=== PATIENT | male | born 1995 | race American Indian/Alaskan Native ===

== ENCOUNTER 2017-01-10 19:16 | Emergency (ER) | payer OTHER ==
[2017-01-10 21:16] LABS: Urine Drugs of Abuse Note Disclamer
[2017-01-10 21:38] LABS: Bilirubin,Urine NEG (Negative); Blood,Urine SM (Negative); Ketones,Urine 20 mg/dL (Negative); Leukocyte Esterase,Urine TR (Negative); Mucus,Urine 3+ /HPF; Nitrite,Urine NEG (Negative)
[2017-01-10 22:14] LABS: Basophils % (Auto) 0.6 % (0.0-1.8); Eosinophils % (Auto) 6.4 % (0.0-4.3); Hematocrit 43.3 % (35.5-45.6); Hemoglobin 14.6 gm/dl (11.8-15.2); Mean Corpuscular HGB Conc 34 % (32-34); Mean Corpuscular Hemoglobin 30 pg (28-32); Mean Corpuscular Volume 88 fl (84-94); Platelet Count 143 K/mm3 (140-440); Red Cell Distribution Width 14.7 % (13.2-15.2); White Blood Count 6.4 K/mm3 (4.5-11.0)
[2017-01-10 22:22] LABS: Anion Gap 21 mmol/L; BUN/Creatinine Ratio 18.75; Blood Urea Nitrogen 15 mg/dL (9-20); Calcium 9.6 mg/dL (8.4-10.2); Carbon Dioxide 23 mmol/L (22-30); Glucose 90 mg/dL (75-100); Potassium 3.8 mmol/L (3.6-5.0); Sodium 146 mmol/L (137-145)
[2017-01-11] MEDS ORDERED: ZITHROMAX PO ONE (08:48)
[2017-01-11] MEDS ORDERED: XYLOCAINE 1% MPF 5 mL INFILTRATI ONE (08:49)
[2017-01-11] MEDS ORDERED: ROCEPHIN IM ONE (08:49)
--- NOTE | 2017-01-11 08:59 | Emergency Department Report ---
ED Psych HPI - General Chief Complaint: Psych Stated Complaint: MH/ HALLUCINATIONS Time Seen by Provider: 01/11/17 08:11 Source: patient, EMS Mode of arrival: Ambulatory Limitations: No Limitations - History of Present Illness Initial Comments: 21-year-old male with history of HIV and breast implants presents to the hospital with complaints of hallucinations 2 days. Patient does not feel like himself. He states he objects moving and having auditory hallucinations. Denies headache, fever, neck pain, nausea, vomiting, blurred vision, or focal weakness. Patient has never had a previous psychiatric disorder and is not describing any medication. No compressive suicidal or homicidal ideation. Patient has not taken his HIV meds in 3 weeks. Patient does not know his last CD4 count or viral load. He does states he's been only been told he has HIV not full-blown AIDS. Patient has had breast implants but states he still has penile genitalia. No reports of dysuria or discharge - Related Data Home Medications Medication Instructions Recorded Confirmed Last Taken Elviteg/Cathryn/Emtric/Tenofo Ala 1 each PO QDAY 01/11/17 01/11/17 Unknown [Genvoya (Nf)] Quetiapine Fumarate [SEROquel XR] 25 mg PO QDAY 01/11/17 01/11/17 Unknown Allergies Allergy/AdvReac Type Severity Reaction Status Date / Time No Known Allergies Allergy Unverified 01/10/17 20:55 ED Review of Systems ROS: Stated complaint: MH/ HALLUCINATIONS Other details as noted in HPI Comment: All other systems reviewed and negative Other: Constitutional: No fevers chills Eyes: No eye pain visual changes ENT: No ear pain or throat pain Neck: Denies pain Respiratory: Denies cough wheezing shortness of breath Cardiovascular: Denies chest pain, palpitations, syncope GI: Denies abdominal pain, nausea, vomiting, diarrhea : Denies dysuria, urinary frequency, or urgency Musculoskeletal: Denies back pain, joint swelling Skin: Denies rash, lesions, erythema Neurologic: Denies headache, numbness, weakness Psychiatric: Denies suicidal ideation ED Past Medical Hx - Past Medical History Previous Medical History?: Yes Hx Psychiatric Treatment: Yes (hallucinations) Hx HIV: Yes - Surgical History Past Surgical History?: Yes Additional Surgical History: Breast augmentation - Social History Smoking Status: Never Smoker Substance Use Type: None - Medications Home Medications: Home Medications Medication Instructions Recorded Confirmed Last Taken Type Elviteg/Cathryn/Emtric/Tenofo Ala 1 each PO QDAY 01/11/17 01/11/17 Unknown History [Genvoya (Nf)] Quetiapine Fumarate [SEROquel XR] 25 mg PO QDAY 01/11/17 01/11/17 Unknown History ED Physical Exam - General Limitations: No Limitations - Other Other exam information: General: No limitations, patient is alert in no acute distress Head exam: Atraumatic, normocephalic Eyes exam: Normal appearance, pupils equal reactive to light, extraocular movements intact ENT: Moist mucous membrane, normal oropharynx Neck exam: Normal inspection, full range of motion, no meningismus nontender Respiratory exam: Clear to auscultation bilateral, no wheezes, rales, crackles. Positive breasts Cardiovascular: Normal rate and rhythm, normal heart sounds Abdomen: Soft, nondistended, and nontender, with normal bowel sounds, no rebound, or guarding Extremity: Full range of motion normal inspection no deformity Back: Normal Inspection, full range of motion, no tenderness Neurologic: Alert, oriented x3, cranial nerves intact, no motor or sensory deficit Psychiatric: normal affect, normal mood Skin: Warm, dry, intact ED Course Vital Signs 01/10/17 01/10/17 01/11/17 19:44 20:55 04:23 Temperature 99.3 F 99.3 F Pulse Rate 92 H 92 H 79 Respiratory 20 18 18 Rate Blood Pressure 119/83 126/86 Blood Pressure 119/83 [Right] O2 Sat by Pulse 95 95 Oximetry 01/11/17 01/11/17 05:50 12:00 Temperature 98.8 F Pulse Rate 84 Respiratory 16 18 Rate Blood Pressure Blood Pressure 118/78 [Right] O2 Sat by Pulse 96 98 Oximetry - Reevaluation(s) Reevaluation #1: 01/11/17 09:01 Rocephin and azithromycin ordered for your leukocytosis. GC chlamydia pending. Urine culture pending. ED Medical Decision Making - Lab Data Result diagrams: 01/10/17 21:34 01/10/17 21:34 Lab Results 01/10/17 01/10/17 01/10/17 Range/Units 21:00 21:00 21:34 WBC (4.5-11.0) K/mm3 RBC (3.65-5.03) M/mm3 Hgb (11.8-15.2) gm/dl Hct (35.5-45.6) % MCV (84-94) fl MCH (28-32) pg MCHC (32-34) % RDW (13.2-15.2) % Plt Count (140-440) K/mm3 Lymph % (Auto) (13.4-35.0) % [place] % (Auto) (0.0-7.3) % Eos % (Auto) (0.0-4.3) % Baso % (Auto) (0.0-1.8) % Lymph # (1.2-5.4) K/mm3 Morrow # (0.0-0.8) K/mm3 Eos # (0.0-0.4) K/mm3 Baso # (0.0-0.1) K/mm3 Seg Neutrophils % (40.0-70.0) % Seg Neutrophils # (1.8-7.7) K/mm3 Sodium 146 H (137-145) mmol/L Potassium 3.8 (3.6-5.0) mmol/L Chloride 106.0 (98-107) mmol/L Carbon Dioxide 23 (22-30) mmol/L Anion Gap 21 mmol/L BUN 15 (9-20) mg/dL Creatinine 0.8 (0.8-1.5) mg/dL Estimated GFR > 60 ml/min BUN/Creatinine Ratio 18.75 % Glucose 90 (75-100) mg/dL Calcium 9.6 (8.4-10.2) mg/dL Urine Color Sulma (Yellow) Urine Turbidity Cloudy (Clear) Urine pH 6.0 (5.0-7.0) Ur Specific [place] 1.033 H (1.003-1.030) Urine Protein 100 mg/dl (Negative) mg/dL Urine Glucose (UA) Neg (Negative) mg/dL Urine Ketones 20 (Negative) mg/dL Urine Blood Sm (Negative) Urine Nitrite Neg (Negative) Urine Bilirubin Neg (Negative) Urine Urobilinogen 4.0 (<2.0) mg/dL Ur Leukocyte Esterase Tr (Negative) Urine WBC (Auto) 13.0 H (0.0-6.0) /HPF Urine RBC (Auto) 7.0 (0.0-6.0) /HPF Urine Mucus 3+ /HPF Urine Opiates Screen Presumptive negative Urine Methadone Screen Presumptive negative Ur Barbiturates Screen Presumptive negative Ur Phencyclidine Scrn Presumptive negative Ur Amphetamines Screen Presumptive negative U Benzodiazepines Scrn Presumptive negative Urine Cocaine Screen Presumptive negative U Marijuana (THC) Screen Presumptive negative Drugs of Abuse Note Disclamer Plasma/Serum Alcohol (0-0.07) gm% 01/10/17 01/10/17 Range/Units 21:34 21:34 WBC 6.4 (4.5-11.0) K/mm3 RBC 4.90 (3.65-5.03) M/mm3 Hgb 14.6 (11.8-15.2) gm/dl Hct 43.3 (35.5-45.6) % MCV 88 (84-94) fl MCH 30 (28-32) pg MCHC 34 (32-34) % RDW 14.7 (13.2-15.2) % Plt Count 143 (140-440) K/mm3 Lymph % (Auto) 36.3 H (13.4-35.0) % [place] % (Auto) 10.9 H (0.0-7.3) % Eos % (Auto) 6.4 H (0.0-4.3) % Baso % (Auto) 0.6 (0.0-1.8) % Lymph # 2.3 (1.2-5.4) K/mm3 Morrow # 0.7 (0.0-0.8) K/mm3 Eos # 0.4 (0.0-0.4) K/mm3 Baso # 0.0 (0.0-0.1) K/mm3 Seg Neutrophils % 45.8 (40.0-70.0) % Seg Neutrophils # 2.9 (1.8-7.7) K/mm3 Sodium (137-145) mmol/L Potassium (3.6-5.0) mmol/L Chloride (98-107) mmol/L Carbon Dioxide (22-30) mmol/L Anion Gap mmol/L BUN (9-20) mg/dL Creatinine (0.8-1.5) mg/dL Estimated GFR ml/min BUN/Creatinine Ratio % Glucose (75-100) mg/dL Calcium (8.4-10.2) mg/dL Urine Color (Yellow) Urine Turbidity (Clear) Urine pH (5.0-7.0) Ur Specific [place] (1.003-1.030) Urine Protein (Negative) mg/dL Urine Glucose (UA) (Negative) mg/dL Urine Ketones (Negative) mg/dL Urine Blood (Negative) Urine Nitrite (Negative) Urine Bilirubin (Negative) Urine Urobilinogen (<2.0) mg/dL Ur Leukocyte Esterase (Negative) Urine WBC (Auto) (0.0-6.0) /HPF Urine RBC (Auto) (0.0-6.0) /HPF Urine Mucus /HPF Urine Opiates Screen Urine Methadone Screen Ur Barbiturates Screen Ur Phencyclidine Scrn Ur Amphetamines Screen U Benzodiazepines Scrn Urine Cocaine Screen U Marijuana (THC) Screen Drugs of Abuse Note Plasma/Serum Alcohol < 0.01 (0-0.07) gm% - Radiology Data Radiology results: report reviewed (ct head: naf) - Medical Decision Making Acute psychotic break. CT within normal limits. Antibiotics admission for your leukocytosis. Gonorrhea chlamydia culture pending. Medical clear for psychiatric transfer Psychiatric provider to sign 1013 form - Differential Diagnosis schizophrenia, psychosis, intracranial abnormality Critical Care Time: No Critical care attestation.: If time is entered above; I have spent that time in minutes in the direct care of this critically ill patient, excluding procedure time. ED Disposition Clinical Impression: Acute psychosis, HIV (human immunodeficiency virus infection), Urethritis, Hx of breast implants, bilateral, Medical clearance for psychiatric admission Disposition: DC/TX-65 PSY HOSP/PSY UNIT Is pt being admited?: No Does the pt Need Aspirin: No Condition: Stable Forms: STI Treatment and Prevention Time of Disposition: 16:44 (awaiting acceptance)
--- NOTE | 2017-01-11 09:39 | Cat Scan Report ---
Cranial CT without contrast. History: New onset psychosis. Findings: The brain parenchyma is normal. There is no evidence of mass, extra-axial collection, infarct, or hemorrhage. The posterior fossa is normal. The ventricles are normal. The calvarium is intact. Impression: Negative study.
--- NOTE | 2017-01-11 12:23 | Consultation ---
History of Present Illness - Reason for Consult Consult date: 01/11/17 Reason for consult: Mental Health Evaluation Requesting physician: NICKI JENNINGS - Chief Complaint Chief complaint: "I don't feel like myself" - History of Present Psychiatric Illness 21-year-old male with history of HIV and breast implants presents to the hospital with complaints of hallucinations 2 days. Today patient is calm, cooperative but disorganized with a circumstantial thought process. He stated not feeling like "himself" the last couple days "mentally." He reports being HIV positive and not taking his HIV medications for 3 weeks. He stated that he went out of town and returned experiencing AVH's. He could not tell me what the voices are saying, but stated that he see dark shadows often. He stated that he does not work, is homeless, but could not tell me how he got to [place]. Patient was able to ID the current [place] President and recall 2/3 numbers (3, 18, 22). He denies SI/HI's, but admit to erratic sleep for the past week. He denies recreational drug use or excessive alcohol consumption. Medications and Allergies Allergies Allergy/AdvReac Type Severity Reaction Status Date / Time No Known Allergies Allergy Unverified 01/10/17 20:55 Past psychiatric history - Past Medical History Past Medical History: other (HIV) Past Surgical History: Other - past Psychiatric treatment and history psychiatric treatment history: He denies a psy andfam psy hx - Social History Social history: Lives alone (GED, Homeless) Mental Status Exam - Vital signs Last Vital Signs Temp 99.3 F 01/10/17 20:55 Pulse 79 01/11/17 04:23 Resp 18 01/11/17 04:23 BP 126/86 01/11/17 04:23 Pulse Ox 95 01/10/17 20:55 - Exam Narrative exam: ROS: (+) psychosis MSE: Appearance: calm Behavior: regular eye contact Speech: low rate and tone Mood: "something is wrong" Affect: labile Thought Process: circumstantial Thought Content: denies SI/HI's, disorganized Motor Activity: ambulatory Cognition: A/Ox 3 Insight: poor Judgment: poor Results Result Diagrams: 01/10/17 21:34 01/10/17 21:34 Abnormal lab results 01/10/17 01/10/17 01/10/17 Range/Units 21:00 21:34 21:34 Lymph % (Auto) 36.3 H (13.4-35.0) % [place] % (Auto) 10.9 H (0.0-7.3) % Eos % (Auto) 6.4 H (0.0-4.3) % Sodium 146 H (137-145) mmol/L Ur Specific [place] 1.033 H (1.003-1.030) Urine WBC (Auto) 13.0 H (0.0-6.0) /HPF All other labs normal. Assessment and Plan Assessment and plan: Impression: Unspecified Psychosis. Today patient is calm, cooperative but disorganized with a circumstantial thought process. Patient denies SI/HI's. Patient have not taken HIV medications in 3 weeks. DDx: R/O Bipolar, R/O Delirium (HIV) Recommendation/Plan: Continue 1013. Start Geodon 20 mg PO HS for psychotic symptoms. Gather more collateral to determine proper dispo.
[2017-01-11] MEDS: GEODON PO SCH ×2 (21:48→23:05)
--- NOTE | 2017-01-12 12:18 | Progress Note ---
Subjective - Reason for Consult Consult date: 01/12/17 Reason for consult: Psychiatry Follow-up - Chief Complaint Chief complaint: "I don't feel like myself" 21-year-old male with history of HIV and breast implants presents to the hospital with complaints of hallucinations 2 days. Today patient is calm and cooperative during assessment. He stated that the AVH's are still active, but rested well last night. He stated seeing shadows this morning. He denies HI's and depression. Per the staff, no behavioral disturbances overnight. He denies any side effects of his medications. Mental Status Exam - Vital signs Last Vital Signs Temp 98.4 F 01/12/17 08:36 Pulse 90 01/12/17 08:36 Resp 18 01/12/17 08:36 BP 113/72 01/12/17 08:36 Pulse Ox 98 01/12/17 08:36 - Exam Narrative exam: MSE: Appearance: calm Behavior: regular eye contact Speech: regular rate and tone Mood: "I feel a little better" Affect: labile Thought Process: circumstantial Thought Content: denies SI/HI's Motor Activity: ambulatory Cognition: A/Ox 3 Insight: limited Judgment: limited Assessment and Plan mpression: Unspecified Psychosis. Today patient is calm and cooperative during the assessment. Patient still having perceptional disturbances. Patient have not taken HIV medications in 3 weeks. Recommendation/Plan: Continue 1013 with placement to inpatient psy services. Modify Geodon to 20 mg PO BID for psychotic symptoms. Discussed possible metabolic side effects of Geodon with patient.
[2017-01-12] MEDS: GEODON PO SCH ×2 (18:20→23:04)
[2017-01-13] MEDS: GEODON PO SCH ×2 (10:03→21:42)
[2017-01-14] MEDS: GEODON PO SCH ×2 (11:03→22:26)
--- NOTE | 2017-01-14 11:29 | Progress Note ---
Subjective - Reason for Consult Consult date: 01/14/17 Reason for consult: Psychiatry Follow-up - Chief Complaint Chief complaint: "How are you" 21-year-old male with history of HIV and breast implants presents to the hospital with complaints of hallucinations 2 days. Today patient is calm and cooperative during assessment. He stated that the AVH's has decreased. He stated getting more rest the last 24 hours. He denies SI/HI's and depression symptoms. Per the staff, no behavioral disturbances overnight. Mental Status Exam - Vital signs Last Vital Signs Temp 98.1 F 01/14/17 08:45 Pulse 82 01/14/17 08:45 Resp 18 01/14/17 08:45 BP 130/82 01/14/17 08:45 Pulse Ox 98 01/14/17 08:45 - Exam Narrative exam: MSE: Appearance: calm Behavior: regular eye contact Speech: regular rate and tone Mood: "okay" Affect: congruent to mood Thought Process: circumstantial Thought Content: denies SI/HI's Motor Activity: ambulatory Cognition: A/Ox 3 Insight: limited Judgment: limited Assessment and Plan Impression: Unspecified Psychosis. Today patient is calm and cooperative during the assessment. Minimum perceptional disturbances. Patient have not taken HIV medications in 3 weeks. Recommendation/Plan: Continue 1013 with placement to inpatient psy services. Continue Geodon to 20 mg PO BID for psychotic symptoms. Discussed possible metabolic side effects of Geodon with patient.
[2017-01-15] MEDS: GEODON PO SCH (09:49)
--- NOTE | 2017-01-15 12:05 | Progress Note ---
Subjective - Reason for Consult Consult date: 01/15/17 Reason for consult: Psychiatry Follow-up - Chief Complaint Chief complaint: "Hello" 21-year-old male with history of HIV and breast implants presents to the hospital with complaints of hallucinations. Today patient is calm and cooperative during assessment. He stated that the AVH's has ceased. He stated that he is homeless and will need somewhere to stay. He denies SI/HI's, AVH's, and depression symptoms. Mental Status Exam - Vital signs Last Vital Signs Temp 98.1 F 01/15/17 07:52 Pulse 75 01/15/17 07:52 Resp 16 01/15/17 07:52 BP 99/55 01/15/17 07:52 Pulse Ox 100 01/15/17 07:52 - Exam Narrative exam: MSE: Appearance: calm Behavior: regular eye contact Speech: regular rate and tone Mood: "okay" Affect: congruent to mood Thought Process: linear Thought Content: denies SI/HI's and AVH's Motor Activity: ambulatory Cognition: A/Ox 3 Insight: fair Judgment: fair Assessment and Plan Impression: Unspecified Psychosis. Today patient is calm and cooperative during the assessment. Denies perceptional disturbances. Patient is homeless. Patient no threat to self. Recommendation/Plan: Rescind 1013. Continue Geodon to 20 mg PO BID for psychotic symptoms. Discussed possible metabolic side effects of Geodon with patient. Science Analyst involvement, patient need placement. Patient given outpatient psy services information for [facility].
[2017-01-15 13:49] VITALS: BP 97/65
--- NOTE | 2017-01-15 13:56 | Emergency Department Report ---
Blank Doc - Documentation Documentation: This patient was medically cleared by another physician. He is discharged by psychiatry. I have been asked to provide him for a prescription for Geodon and print his discharge instructions by the psychiatric nurse practitioner.
== END 2017-01-15 14:22 | disposition home or self-care (01) ==
LOC: EEVIPCON 19:16 → ED 19:16
DX: F23 Brief psychotic disorder (principal); N34.2 Other urethritis
CPT/HCPCS: 36415; 70450; 80048; 80307; 81001; 85025; 87086; 87591; 96372; 99285; G0480; J0696; 80320

== ENCOUNTER 2017-01-23 18:34 | Emergency (ER) | payer SELFPAY ==
[2017-01-23 18:46] VITALS: BP 113/76
== END 2017-01-23 18:42 | disposition left against medical advice (07) ==
LOC: ED 18:34
DX: R07.9 Chest pain, unspecified (principal); Z53.21 Procedure and treatment not carried out due to patient leaving prior to being seen by health care provider

== ENCOUNTER 2017-01-24 19:45 | Emergency (ER) | payer OTHER ==
[2017-01-24 20:20] LABS: Hematocrit 40.9 % (35.5-45.6); Hemoglobin 13.8 gm/dl (11.8-15.2); Mean Corpuscular HGB Conc 34 % (32-34); Mean Corpuscular Hemoglobin 30 pg (28-32); Mean Corpuscular Volume 88 fl (84-94); Red Blood Count 4.63 M/mm3 (3.65-5.03); White Blood Count 4.7 K/mm3 (4.5-11.0)
[2017-01-24 20:21] LABS: Basophils % (Auto) 0.6 % (0.0-1.8); Platelet Count 176 K/mm3 (140-440)
[2017-01-24 20:26] LABS: Urine Drugs of Abuse Note Disclamer
[2017-01-24 20:30] LABS: Anion Gap 20 mmol/L; BUN/Creatinine Ratio 16.25; Blood Urea Nitrogen 13 mg/dL (9-20); Calcium 9.9 mg/dL (8.4-10.2); Carbon Dioxide 24 mmol/L (22-30); Glucose 88 mg/dL (75-100); Potassium 3.9 mmol/L (3.6-5.0); Sodium 144 mmol/L (137-145)
[2017-01-24 20:46] LABS: Bilirubin,Urine NEG (Negative); Blood,Urine NEG (Negative); Ketones,Urine NEG (Negative); Leukocyte Esterase,Urine NEG (Negative); Mucus,Urine 3+ /HPF; Nitrite,Urine NEG (Negative)
[2017-01-25] MEDS ORDERED: MACROBID PO ONE (00:45)
--- NOTE | 2017-01-25 00:46 | Emergency Department Report ---
ED General Adult HPI - General Chief complaint: Psych Stated complaint: MH Time Seen by Provider: 01/24/17 23:50 Source: patient, RN notes reviewed, old records reviewed Mode of arrival: Ambulatory Limitations: No Limitations - History of Present Illness Initial comments: This is a 22-year-old male. The patient is previously unknown to me. The patient reports a past medical history of HIV, does not know his CD4 count or viral load, reports he is currently on highly active antiretroviral therapy ( genvoya). He does not know CD4 count or viral load. The patient presents to the ER with a complaint of feeling like he is on a drug. He denies headache, neck pain, chest pain, abdominal pain or shortness of breath. He denies testicular pain. He does report that he has scant dysuria. He has no testicular pain. He has no rectal pain. The patient reports no recent sexual activity. When asked to further clarify what he means by his symptoms, the patient indicates that he feels like he has a sense of general fatigue, malaise, and lack of energy. -: Gradual Severity scale (0 -10): 0 Consistency: constant Improves with: none Worsens with: none Associated Symptoms: loss of appetite, malaise, weakness. denies: confusion, chest pain, cough, diaphoresis, fever/chills, headaches, shortness of breath, syncope - Related Data Home Medications Medication Instructions Recorded Confirmed Last Taken Elviteg/Cathryn/Emtric/Tenofo Ala 1 each PO QDAY 01/11/17 01/11/17 Unknown [Genvoya (Nf)] Quetiapine Fumarate [SEROquel XR] 25 mg PO QDAY 01/11/17 01/11/17 Unknown Previous Rx's Medication Instructions Recorded Last Taken Type Ziprasidone [Geodon] 20 mg PO BID #60 capsule 01/15/17 Unknown Rx Nitrofurantoin [place]/M-Cryst 100 mg PO Q12HR #13 capsule 01/25/17 Unknown Rx [Macrobid CAP] Allergies Allergy/AdvReac Type Severity Reaction Status Date / Time No Known Allergies Allergy Unverified 01/10/17 20:55 ED Review of Systems ROS: Stated complaint: MH Other details as noted in HPI Constitutional: malaise, weakness Eyes: denies: vision change ENT: denies: epistaxis Respiratory: denies: cough Cardiovascular: denies: chest pain Gastrointestinal: denies: abdominal pain Genitourinary: denies: dysuria Musculoskeletal: denies: back pain Skin: denies: lesions Neurological: weakness Psychiatric: denies: homicidal thoughts, suicidal thoughts ED Past Medical Hx - Past Medical History Previous Medical History?: Yes Hx Psychiatric Treatment: Yes (hallucinations) Hx HIV: Yes - Surgical History Past Surgical History?: Yes Additional Surgical History: Breast augmentation - Social History Smoking Status: Never Smoker Substance Use Type: None - Medications Home Medications: Home Medications Medication Instructions Recorded Confirmed Last Taken Type Elviteg/Cathryn/Emtric/Tenofo Ala 1 each PO QDAY 01/11/17 01/11/17 Unknown History [Genvoya (Nf)] Quetiapine Fumarate [SEROquel XR] 25 mg PO QDAY 01/11/17 01/11/17 Unknown History Ziprasidone [Geodon] 20 mg PO BID #60 capsule 01/15/17 Unknown Rx Nitrofurantoin [place]/M-Cryst 100 mg PO Q12HR #13 capsule 01/25/17 Unknown Rx [Macrobid CAP] ED Physical Exam - General Limitations: No Limitations General appearance: alert, in no apparent distress - Head Head exam: Present: atraumatic, normocephalic - Eye Eye exam: Present: normal appearance, EOMI. Absent: nystagmus - ENT ENT exam: Present: normal exam, normal orophraynx, mucous membranes moist, normal external ear exam - Neck Neck exam: Present: normal inspection, full ROM. Absent: tenderness, meningismus - Respiratory Respiratory exam: Present: normal lung sounds bilaterally. Absent: respiratory distress, wheezes, rales, rhonchi, stridor, chest wall tenderness, accessory muscle use, decreased breath sounds, prolonged expiratory - Cardiovascular Cardiovascular Exam: Present: regular rate, normal rhythm, normal heart sounds. Absent: systolic murmur, diastolic murmur, rubs, gallop - GI/Abdominal GI/Abdominal exam: Present: soft, normal bowel sounds. Absent: distended, tenderness, guarding, rebound, rigid - Rectal Rectal exam: Present: deferred - Extremities Exam Extremities exam: Present: normal inspection, full ROM, normal capillary refill. Absent: tenderness, pedal edema, joint swelling, calf tenderness - Back Exam Back exam: Present: normal inspection, full ROM. Absent: tenderness, CVA tenderness (R), CVA tenderness (L), muscle spasm, paraspinal tenderness, vertebral tenderness - Neurological Exam Neurological exam: Present: alert, oriented X3, normal gait, other (Extraocular movements intact. Tongue midline. No facial droop. Facial sensation intact to light touch in the V1, V2, V3 distribution bilaterally. 5 and 5 strength in 4 extremities.. Sensation is intact to light touch in 4 extremities.). Absent : motor sensory deficit - Psychiatric Psychiatric exam: Present: normal affect, normal mood. Absent: homicidal ideation, suicidal ideation - Skin Skin exam: Present: warm, dry, intact, normal color. Absent: rash ED Course Vital Signs 01/24/17 19:50 Temperature 99.4 F Pulse Rate 82 Respiratory 18 Rate Blood Pressure 113/71 [Right] O2 Sat by Pulse 99 Oximetry ED Medical Decision Making - Lab Data Result diagrams: 01/24/17 20:09 01/24/17 20:09 Vital Signs 01/24/17 19:50 Temperature 99.4 F Pulse Rate 82 Respiratory 18 Rate Blood Pressure 113/71 [Right] O2 Sat by Pulse 99 Oximetry Lab Results 01/24/17 01/24/17 01/24/17 Range/Units 20:09 20:09 20:09 WBC 4.7 (4.5-11.0) K/mm3 RBC 4.63 (3.65-5.03) M/mm3 Hgb 13.8 (11.8-15.2) gm/dl Hct 40.9 (35.5-45.6) % MCV 88 (84-94) fl MCH 30 (28-32) pg MCHC 34 (32-34) % RDW 15.0 (13.2-15.2) % Plt Count 176 (140-440) K/mm3 Lymph % (Auto) 42.8 H (13.4-35.0) % [place] % (Auto) 10.9 H (0.0-7.3) % Eos % (Auto) 8.0 H (0.0-4.3) % Baso % (Auto) 0.6 (0.0-1.8) % Lymph # 2.0 (1.2-5.4) K/mm3 [place] # 0.5 (0.0-0.8) K/mm3 Eos # 0.4 (0.0-0.4) K/mm3 Baso # 0.0 (0.0-0.1) K/mm3 Seg Neutrophils % 37.7 L (40.0-70.0) % Seg Neutrophils # 1.8 (1.8-7.7) K/mm3 Sodium 144 (137-145) mmol/L Potassium 3.9 (3.6-5.0) mmol/L Chloride 104.0 (98-107) mmol/L Carbon Dioxide 24 (22-30) mmol/L Anion Gap 20 mmol/L BUN 13 (9-20) mg/dL Creatinine 0.8 (0.8-1.5) mg/dL Estimated GFR > 60 ml/min BUN/Creatinine Ratio 16.25 % Glucose 88 (75-100) mg/dL Calcium 9.9 (8.4-10.2) mg/dL Total Creatine Kinase (55-170) units/L Urine Color (Yellow) Urine Turbidity (Clear) Urine pH (5.0-7.0) Ur Specific [place] (1.003-1.030) Urine Protein (Negative) mg/dL Urine Glucose (UA) (Negative) mg/dL Urine Ketones (Negative) mg/dL Urine Blood (Negative) Urine Nitrite (Negative) Urine Bilirubin (Negative) Urine Urobilinogen (<2.0) mg/dL Ur Leukocyte Esterase (Negative) Urine WBC (Auto) (0.0-6.0) /HPF Urine RBC (Auto) (0.0-6.0) /HPF U Epithel Cells (Auto) (0-13.0) /HPF Amorphous Crystals Urine Mucus /HPF Salicylates (2.8-20.0) mg/dL Urine Opiates Screen Urine Methadone Screen Acetaminophen (10.0-30.0) ug/mL Ur Barbiturates Screen Ur Phencyclidine Scrn Ur Amphetamines Screen U Benzodiazepines Scrn Urine Cocaine Screen U Marijuana (THC) Screen Drugs of Abuse Note Plasma/Serum Alcohol < 0.01 (0-0.07) gm% 01/24/17 01/24/17 01/24/17 Range/Units 20:09 20:09 20:09 WBC (4.5-11.0) K/mm3 RBC (3.65-5.03) M/mm3 Hgb (11.8-15.2) gm/dl Hct (35.5-45.6) % MCV (84-94) fl MCH (28-32) pg MCHC (32-34) % RDW (13.2-15.2) % Plt Count (140-440) K/mm3 Lymph % (Auto) (13.4-35.0) % [place] % (Auto) (0.0-7.3) % Eos % (Auto) (0.0-4.3) % Baso % (Auto) (0.0-1.8) % Lymph # (1.2-5.4) K/mm3 [place] # (0.0-0.8) K/mm3 Eos # (0.0-0.4) K/mm3 Baso # (0.0-0.1) K/mm3 Seg Neutrophils % (40.0-70.0) % Seg Neutrophils # (1.8-7.7) K/mm3 Sodium (137-145) mmol/L Potassium (3.6-5.0) mmol/L Chloride (98-107) mmol/L Carbon Dioxide (22-30) mmol/L Anion Gap mmol/L BUN (9-20) mg/dL Creatinine (0.8-1.5) mg/dL Estimated GFR ml/min BUN/Creatinine Ratio % Glucose (75-100) mg/dL Calcium (8.4-10.2) mg/dL Total Creatine Kinase 388 H (55-170) units/L Urine Color (Yellow) Urine Turbidity (Clear) Urine pH (5.0-7.0) Ur Specific [place] (1.003-1.030) Urine Protein (Negative) mg/dL Urine Glucose (UA) (Negative) mg/dL Urine Ketones (Negative) mg/dL Urine Blood (Negative) Urine Nitrite (Negative) Urine Bilirubin (Negative) Urine Urobilinogen (<2.0) mg/dL Ur Leukocyte Esterase (Negative) Urine WBC (Auto) (0.0-6.0) /HPF Urine RBC (Auto) (0.0-6.0) /HPF U Epithel Cells (Auto) (0-13.0) /HPF Amorphous Crystals Urine Mucus /HPF Salicylates < 0.3 L (2.8-20.0) mg/dL Urine Opiates Screen Urine Methadone Screen Acetaminophen < 15.0 (10.0-30.0) ug/mL Ur Barbiturates Screen Ur Phencyclidine Scrn Ur Amphetamines Screen U Benzodiazepines Scrn Urine Cocaine Screen U Marijuana (THC) Screen Drugs of Abuse Note Plasma/Serum Alcohol (0-0.07) gm% 01/24/17 01/24/17 Range/Units 20:16 20:16 WBC (4.5-11.0) K/mm3 RBC (3.65-5.03) M/mm3 Hgb (11.8-15.2) gm/dl Hct (35.5-45.6) % MCV (84-94) fl MCH (28-32) pg MCHC (32-34) % RDW (13.2-15.2) % Plt Count (140-440) K/mm3 Lymph % (Auto) (13.4-35.0) % [place] % (Auto) (0.0-7.3) % Eos % (Auto) (0.0-4.3) % Baso % (Auto) (0.0-1.8) % Lymph # (1.2-5.4) K/mm3 [place] # (0.0-0.8) K/mm3 Eos # (0.0-0.4) K/mm3 Baso # (0.0-0.1) K/mm3 Seg Neutrophils % (40.0-70.0) % Seg Neutrophils # (1.8-7.7) K/mm3 Sodium (137-145) mmol/L Potassium (3.6-5.0) mmol/L Chloride (98-107) mmol/L Carbon Dioxide (22-30) mmol/L Anion Gap mmol/L BUN (9-20) mg/dL Creatinine (0.8-1.5) mg/dL Estimated GFR ml/min BUN/Creatinine Ratio % Glucose (75-100) mg/dL Calcium (8.4-10.2) mg/dL Total Creatine Kinase (55-170) units/L Urine Color [place] (Yellow) Urine Turbidity Cloudy (Clear) Urine pH 6.0 (5.0-7.0) Ur Specific [place] 1.028 (1.003-1.030) Urine Protein 30 mg/dl (Negative) mg/dL Urine Glucose (UA) Neg (Negative) mg/dL Urine Ketones Neg (Negative) mg/dL Urine Blood Neg (Negative) Urine Nitrite Neg (Negative) Urine Bilirubin Neg (Negative) Urine Urobilinogen 4.0 (<2.0) mg/dL Ur Leukocyte Esterase Neg (Negative) Urine WBC (Auto) 14.0 H (0.0-6.0) /HPF Urine RBC (Auto) 3.0 (0.0-6.0) /HPF U Epithel Cells (Auto) 3.0 (0-13.0) /HPF Amorphous Crystals 1+ Urine Mucus 3+ /HPF Salicylates (2.8-20.0) mg/dL Urine Opiates Screen Presumptive negative Urine Methadone Screen Presumptive negative Acetaminophen (10.0-30.0) ug/mL Ur Barbiturates Screen Presumptive negative Ur Phencyclidine Scrn Presumptive negative Ur Amphetamines Screen Presumptive negative U Benzodiazepines Scrn Presumptive negative Urine Cocaine Screen Presumptive negative U Marijuana (THC) Screen Presumptive negative Drugs of Abuse Note Disclamer Plasma/Serum Alcohol (0-0.07) gm% - Medical Decision Making Differential diagnosis: Urinary tract infection, chronic HIV, anemia, Gen. medical evaluation Assessment and plan: 22-year-old male with chronic HIV, currently on highly active antiretroviral therapy, with a non specific complaint of fatigue. Physical exam is unremarkable, GCS of 15, NIH score of 0, clinically sober, does not require 1013. Urinalysis suggests urinary tract infection, he does endorse some irritative urinary symptoms, recently was tested negatively for gonorrhea and chlamydia. The patient is counseled that this is most likely part of the natural history of his HIV, and he should follow up with his outpatient HIV specialist. His vital signs have remained stable, he is afebrile , and he is suitable to follow up with outpatient primary care. Return precautions are reviewed. Critical care attestation.: If time is entered above; I have spent that time in minutes in the direct care of this critically ill patient, excluding procedure time. ED Disposition Clinical Impression: HIV (human immunodeficiency virus infection), Weakness Disposition: DC-01 TO HOME OR SELFCARE Is pt being admited?: No Does the pt Need Aspirin: No Condition: Stable Instructions: Nonspecific Urethritis in Men (ED) Additional Instructions: Continue current outpatient medications. Follow-up with a primary care doctor or HIV specialist within the next 10-14 days. Take antibiotics as directed. Return to the ER right away with fevers, chills, chest pain, shortness of breath , nausea, vomiting, confusion, intractable nausea or vomiting, inability to tolerate liquid feeds. Referrals: PRIMARY CARE, [Primary Care Provider] - 3-5 Days MICHELE ROGERS MD [Staff Physician] - 3-5 Days LAW WALLACE MD [Staff Physician] - 3-5 Days
[2017-01-25 00:51] VITALS: BP 120/61
== END 2017-01-25 00:55 | disposition home or self-care (01) ==
LOC: ED 19:45 → EEVIPCON 19:45 → ED 01-25 00:55
DX: R53.1 Weakness (principal); R44.3 Hallucinations, unspecified
CPT/HCPCS: 36415; 80048; 80307; 81001; 82550; 85025; 99284; G0480; 80320

== ENCOUNTER 2017-01-31 13:40 | Emergency (ER) | payer SELFPAY ==
--- NOTE | 2017-01-31 16:26 | Emergency Department Report ---
ED General Adult HPI - General Chief complaint: Urogenital-Female Stated complaint: POSS STD Source: patient Mode of arrival: Ambulatory Limitations: No Limitations - History of Present Illness Initial comments: 22 year old male presents with positive syphilis test from [place] without treatment. states that he was tested there a week ago and they called him the results but didnt get treated. states partner also has syphilis denies any symptoms at this time. - Related Data Home Medications Medication Instructions Recorded Confirmed Last Taken Elviteg/Cathryn/Emtric/Tenofo Ala 1 each PO QDAY 01/11/17 01/11/17 Unknown [Genvoya (Nf)] Quetiapine Fumarate [SEROquel XR] 25 mg PO QDAY 01/11/17 01/11/17 Unknown Previous Rx's Medication Instructions Recorded Last Taken Type Ziprasidone [Geodon] 20 mg PO BID #60 capsule 01/15/17 Unknown Rx Nitrofurantoin [place]/M-Cryst 100 mg PO Q12HR #13 capsule 01/25/17 Unknown Rx [Macrobid CAP] Allergies Allergy/AdvReac Type Severity Reaction Status Date / Time No Known Allergies Allergy Unverified 01/10/17 20:55 ED Review of Systems ROS: Stated complaint: POSS STD Other details as noted in HPI Constitutional: denies: chills, fever Eyes: denies: eye pain, eye discharge, vision change ENT: denies: ear pain, throat pain Respiratory: denies: cough, shortness of breath, wheezing Cardiovascular: denies: chest pain, palpitations Endocrine: no symptoms reported Gastrointestinal: denies: abdominal pain, nausea, diarrhea Genitourinary: denies: urgency, dysuria Musculoskeletal: denies: back pain, joint swelling, arthralgia Skin: denies: rash, lesions Neurological: denies: headache, weakness, paresthesias Psychiatric: denies: anxiety, depression Hematological/Lymphatic: denies: easy bleeding, easy bruising ED Past Medical Hx - Past Medical History Hx Psychiatric Treatment: Yes (hallucinations) Hx HIV: Yes Additional medical history: syphillis - Surgical History Additional Surgical History: Breast augmentation - Social History Smoking Status: Never Smoker Substance Use Type: None - Medications Home Medications: Home Medications Medication Instructions Recorded Confirmed Last Taken Type Elviteg/Cathryn/Emtric/Tenofo Ala 1 each PO QDAY 01/11/17 01/11/17 Unknown History [Genvoya (Nf)] Quetiapine Fumarate [SEROquel XR] 25 mg PO QDAY 01/11/17 01/11/17 Unknown History Ziprasidone [Geodon] 20 mg PO BID #60 capsule 01/15/17 Unknown Rx Nitrofurantoin [place]/M-Cryst 100 mg PO Q12HR #13 capsule 01/25/17 Unknown Rx [Macrobid CAP] ED Physical Exam - General Limitations: No Limitations General appearance: alert, in no apparent distress - Head Head exam: Present: atraumatic, normocephalic - Eye Eye exam: Present: normal appearance - ENT ENT exam: Present: mucous membranes moist - Neck Neck exam: Present: normal inspection - Respiratory Respiratory exam: Present: normal lung sounds bilaterally. Absent: respiratory distress - Cardiovascular Cardiovascular Exam: Present: regular rate, normal rhythm. Absent: systolic murmur, diastolic murmur, rubs, gallop - GI/Abdominal GI/Abdominal exam: Present: soft, normal bowel sounds - Rectal Rectal exam: Present: deferred - Extremities Exam Extremities exam: Present: normal inspection - Back Exam Back exam: Present: normal inspection - Neurological Exam Neurological exam: Present: alert, oriented X3 - Psychiatric Psychiatric exam: Present: normal affect, normal mood - Skin Skin exam: Present: warm, dry, intact, normal color. Absent: rash ED Course Vital Signs 01/31/17 01/31/17 13:55 16:49 Temperature 98.4 F Pulse Rate 74 86 Respiratory 16 16 Rate Blood Pressure 141/114 Blood Pressure 107/67 [Left] O2 Sat by Pulse 100 100 Oximetry ED Medical Decision Making - Lab Data Vital Signs 01/31/17 01/31/17 13:55 16:49 Temperature 98.4 F Pulse Rate 74 86 Respiratory 16 16 Rate Blood Pressure 141/114 Blood Pressure 107/67 [Left] O2 Sat by Pulse 100 100 Oximetry - Medical Decision Making patient has no symptoms at this time. NAD. will treat with bicillin in the ED. Critical care attestation.: If time is entered above; I have spent that time in minutes in the direct care of this critically ill patient, excluding procedure time. ED Disposition Clinical Impression: Positive serology for syphilis, Exposure to syphilis Disposition: DC-01 TO HOME OR SELFCARE Is pt being admited?: No Does the pt Need Aspirin: No Condition: Good Instructions: Syphilis (ED) Referrals: PRIMARY CARE, [Primary Care Provider] - 3-5 Days MARIAELENA TOSCANO [ED Bean Snapper] - 3-5 Days Time of Disposition: 16:28
[2017-01-31] MEDS ORDERED: BICILLIN L-A IM ONE (16:28)
[2017-01-31 16:50] VITALS: BP 107/67
== END 2017-01-31 17:33 | disposition home or self-care (01) ==
LOC: ED 13:40
DX: A53.9 Syphilis, unspecified (principal)
CPT/HCPCS: 96372; 99282; J0561

== ENCOUNTER 2017-02-04 21:05 | Emergency (ER) | payer OTHER ==
[2017-02-04 21:52] VITALS: BP 105/70
== END 2017-02-05 00:44 | disposition left against medical advice (07) ==
LOC: ED 21:05
DX: N64.4 Mastodynia (principal); Z53.21 Procedure and treatment not carried out due to patient leaving prior to being seen by health care provider

== ENCOUNTER 2017-02-08 11:56 | Emergency (ER) | payer SELFPAY ==
[2017-02-08 12:30] LABS: Hematocrit 40.7 % (35.5-45.6); Hemoglobin 13.5 gm/dl (11.8-15.2); Mean Corpuscular HGB Conc 33 % (32-34); Mean Corpuscular Hemoglobin 30 pg (28-32); Mean Corpuscular Volume 90 fl (84-94); Platelet Count 164 K/mm3 (140-440); Red Blood Count 4.53 M/mm3 (3.65-5.03); Red Cell Distribution Width 15.5 % (13.2-15.2); White Blood Count 3.7 K/mm3 (4.5-11.0)
[2017-02-08 12:42] LABS: Anion Gap 23 mmol/L; BUN/Creatinine Ratio 21.42; Blood Urea Nitrogen 15 mg/dL (9-20); Calcium 9.3 mg/dL (8.4-10.2); Carbon Dioxide 21 mmol/L (22-30); Glucose 69 mg/dL (75-100); Potassium 3.5 mmol/L (3.6-5.0); Sodium 141 mmol/L (137-145)
[2017-02-08 13:10] LABS: Blastocytes % (Manual) 0 %; Diff Status Complete; Platelet Estimate Consistent w Auto; RBC Morphology Normal; Smudge Cells Few
--- NOTE | 2017-02-08 18:43 | Emergency Department Report ---
HPI - General Chief Complaint: Psych Time Seen by Provider: 02/08/17 17:48 - HPI HPI: [facility]/ Room 13 The pt is a 22 /o M p/w a CC of dry cough and fatigue. The pt states he came to the ED b/c he feels as though he has had an ~ 3-4 lbs wt loss over the past week and has felt fatigue and suffered from a dry cough for the past 3-4 days. Pt denies fever, sob, n/v or diarrhea. Pt does admit to auditory halluc for 1 moth. The pt states he hears distant voices and cannot make out what they are saying. Pt denies visual halluc. ED Past Medical Hx - Past Medical History Hx Psychiatric Treatment: Yes (hallucinations) Hx HIV: Yes Additional medical history: syphillis - Surgical History Additional Surgical History: Breast augmentation - Family History Family history: no significant - Social History Smoking Status: Never Smoker Substance Use Type: None (denies illicit drug use) - Medications Home Medications: Home Medications Medication Instructions Recorded Confirmed Last Taken Type Elviteg/Cathryn/Emtric/Tenofo Ala 1 each PO QDAY 01/11/17 01/11/17 Unknown History [Genvoya (Nf)] Quetiapine Fumarate [SEROquel XR] 25 mg PO QDAY 01/11/17 01/11/17 Unknown History Ziprasidone [Geodon] 20 mg PO BID #60 capsule 01/15/17 Unknown Rx Nitrofurantoin [place]/M-Cryst 100 mg PO Q12HR #13 capsule 01/25/17 Unknown Rx [Macrobid CAP] ED Review of Systems ROS: Stated complaint: MEDICAL CLEARANCE Other details as noted in HPI Comment: All other systems reviewed and negative Constitutional: malaise. denies: chills, fever Eyes: denies: eye pain, eye discharge, vision change ENT: denies: ear pain, throat pain Respiratory: cough. denies: shortness of breath, wheezing Cardiovascular: denies: chest pain, palpitations Endocrine: no symptoms reported Gastrointestinal: denies: abdominal pain, nausea, diarrhea Genitourinary: denies: urgency, dysuria Musculoskeletal: denies: back pain, joint swelling, arthralgia Skin: denies: rash, lesions Neurological: denies: weakness, paresthesias Psychiatric: auditory hallucinations. denies: visual hallucinations, homicidal thoughts, suicidal thoughts Hematological/Lymphatic: denies: easy bleeding, easy bruising Physical Exam - Physical Exam Vital Signs: Vital Signs 02/08/17 12:01 Temperature 98.4 F Pulse Rate 82 Respiratory 18 Rate Blood Pressure 119/68 O2 Sat by Pulse 100 Oximetry Physical Exam: GEN: WD, WN M lying on stretcher not appearing to be in acute distress. HEENT: normocephalic, atraumatic PULM: CTA B CV: rrr, no m/r/g ABD: s, nt, nd Neuro: GCS 15, CN 2-12 GI, no drift. no nuchal rigidity, nl gait Ext: no deformity ED Course Vital Signs 02/08/17 12:01 Temperature 98.4 F Pulse Rate 82 Respiratory 18 Rate Blood Pressure 119/68 O2 Sat by Pulse 100 Oximetry ED Medical Decision Making - Lab Data Result diagrams: 02/08/17 12:12 02/08/17 12:12 Laboratory Tests 02/08/17 02/08/17 02/08/17 12:12 12:12 12:12 WBC 3.7 L RBC 4.53 Hgb 13.5 Hct 40.7 MCV 90 MCH 30 MCHC 33 RDW 15.5 H Plt Count 164 Lymph % (Auto) [employer] Add Manual Diff Complete Total Counted 100 Seg Neutrophils % [employer] Seg Neuts % (Manual) 35.0 L Band Neutrophils % 0 Lymphocytes % (Manual) 52.0 H Reactive Lymphs % (Man) 0 Monocytes % (Manual) 9.0 H Eosinophils % (Manual) 2.0 Basophils % (Manual) 2.0 H Metamyelocytes % 0 Myelocytes % 0 Promyelocytes % 0 Blast Cells % 0 Nucleated RBC % Not Reportable Seg Neutrophils # Man 1.3 L Band Neutrophils # 0.0 Lymphocytes # (Manual) 1.9 Abs React Lymphs (Man) 0.0 Monocytes # (Manual) 0.3 Eosinophils # (Manual) 0.1 Basophils # (Manual) 0.1 Metamyelocytes # 0.0 Myelocytes # 0.0 Promyelocytes # 0.0 Blast Cells # 0.0 WBC Morphology Not Reportable Hypersegmented Neuts Not Reportable Hyposegmented Neuts Not Reportable Hypogranular Neuts Not Reportable Smudge Cells Few Toxic Granulation Not Reportable Toxic Vacuolation Not Reportable Dohle Bodies Not Reportable Pelger-Huet Anomaly Not Reportable Jefry Rods Not Reportable Platelet Estimate Consistent w auto Clumped Platelets Not Reportable Plt Clumps, EDTA Not Reportable Large Platelets Not Reportable Giant Platelets Not Reportable Platelet Satelliting Not Reportable Plt Morphology Comment Not Reportable RBC Morphology Normal Dimorphic RBCs Not Reportable Polychromasia Not Reportable Hypochromasia Not Reportable Poikilocytosis Not Reportable Anisocytosis Not Reportable Microcytosis Not Reportable Macrocytosis Not Reportable Spherocytes Not Reportable Pappenheimer Bodies Not Reportable Sickle Cells Not Reportable Target Cells Not Reportable Tear Drop Cells Not Reportable Ovalocytes Not Reportable Helmet Cells Not Reportable [place] Bodies Not Reportable [place] Rings Not Reportable [place] Cells Not Reportable Bite Cells Not Reportable Crenated Cell Not Reportable Elliptocytes Not Reportable Acanthocytes (Spur) Not Reportable Rouleaux Not Reportable Hemoglobin C Crystals Not Reportable Schistocytes Not Reportable Malaria parasites Not Reportable Raj Bodies Not Reportable Hem Pathologist Commnt No Sodium 141 Potassium 3.5 L Chloride 101.0 Carbon Dioxide 21 L Anion Gap 23 BUN 15 Creatinine 0.7 L Estimated GFR > 60 BUN/Creatinine Ratio 21.42 Glucose 69 L Calcium 9.3 Plasma/Serum Alcohol < 0.01 - Differential Diagnosis pna, ptx, anemia, psychosis Critical care attestation.: If time is entered above; I have spent that time in minutes in the direct care of this critically ill patient, excluding procedure time. ED Disposition Clinical Impression: Auditory hallucinations Disposition: DC/TX-65 PSY HOSP/PSY UNIT Is pt being admited?: No Does the pt Need Aspirin: No Condition: Fair Referrals: PRIMARY CARE, [Primary Care Provider] - 3-5 Days Time of Disposition: 01:47 (awaiting eval)
[2017-02-09 09:07] LABS: Urine Drugs of Abuse Note Disclamer
[2017-02-09 09:27] LABS: Bilirubin,Urine NEG (Negative); Blood,Urine NEG (Negative); Ketones,Urine 20 mg/dL (Negative); Leukocyte Esterase,Urine NEG (Negative); Mucus,Urine 3+ /HPF; Nitrite,Urine NEG (Negative)
[2017-02-09 12:34] VITALS: BP 120/69
--- NOTE | 2017-02-09 14:37 | Consultation ---
History of Present Illness - Reason for Consult Consult date: 02/09/17 Reason for consult: Mental Health Evaluation Requesting physician: TA ROUSE - Chief Complaint Chief complaint: "I just wanted some labs done" - History of Present Psychiatric Illness 22 y.o AA male presenting to [facility] for fatigue and hallucinations. Psychiatry was consulted. This patient is known to me. Today patient is calm and cooperative during the assessment. He stated that he wanted some labs done along with getting a UDS. He stated that he came to [facility] because he is familiar with this facility. He stated that he never was hearing voices on admission. He denies SI/HI's, AVH"s, and depression. He denies recreational drug use and excessive alcohol consumption (etoh). Medications and Allergies Allergies Allergy/AdvReac Type Severity Reaction Status Date / Time No Known Allergies Allergy Verified 02/08/17 12:01 Home Medications Medication Instructions Recorded Confirmed Last Taken Type Elviteg/Cathryn/Emtric/Tenofo Ala 1 each PO QDAY 01/11/17 01/11/17 Unknown History [Genvoya (Nf)] Quetiapine Fumarate [SEROquel XR] 25 mg PO QDAY 01/11/17 01/11/17 Unknown History Ziprasidone [Geodon] 20 mg PO BID #60 capsule 01/15/17 Unknown Rx Nitrofurantoin [place]/M-Cryst 100 mg PO Q12HR #13 capsule 01/25/17 Unknown Rx [Macrobid CAP] Past psychiatric history - Past Medical History Past Medical History: HIV/AIDS Past Surgical History: No surgical history - past Psychiatric treatment and history psychiatric treatment history: Referred to [facility] for outpatient psy services in the past. Denies a fam psy hx. - Social History Social history: Lives alone Mental Status Exam - Vital signs Last Vital Signs Temp 98.1 F 02/09/17 07:36 Pulse 75 02/09/17 07:36 Resp 16 02/09/17 12:00 BP 120/69 02/09/17 07:36 Pulse Ox 100 02/09/17 12:00 - Exam Narrative exam: ROS (-) depression, (-) psychosis MSE: Appearance: calm, cooperative Behavior: regular eye contact Speech: regular rate and tone Mood: "okay" Affect: congruent to mood Thought Process: linear Thought Content: denies SI/HI's and AVH's Motor Activity: ambulatory Cognition: A/Ox 3 Insight: fair Judgment: fair Results Result Diagrams: 02/08/17 12:12 02/08/17 12:12 Abnormal lab results 02/08/17 Range/Units 12:12 WBC 3.7 L (4.5-11.0) K/mm3 RDW 15.5 H (13.2-15.2) % Seg Neuts % (Manual) 35.0 L (40.0-70.0) % Lymphocytes % (Manual) 52.0 H (13.4-35.0) % Monocytes % (Manual) 9.0 H (0.0-7.3) % Basophils % (Manual) 2.0 H (0.0-1.8) % Seg Neutrophils # Man 1.3 L (1.8-7.7) K/mm3 All other labs normal. Assessment and Plan Assessment and plan: Impression: Historical Dx: Unspecified Mood DO on previous admission. Today patient is calm and cooperative during the assessment. UDS is negative. Recommendation/Plan: Rescind 1013. Patient is aware that he can follow-up with [facility].
--- NOTE | 2017-02-09 14:43 | Emergency Department Report ---
Blank Doc - Documentation Documentation: Pt was evaluated by mental health assess her and deemed not to be suicidal, homicidal, or acutely psychotic. Patient now states he came here for UDS and STD testing. UDS was performed. Gonorrhea and chlamydia test is pending. Patient also be referred to the health department for further STD evaluation. Patient is not a 1013 and will be discharged home
== END 2017-02-09 15:23 | disposition home or self-care (01) ==
LOC: ED 11:56 → EEVIPCON 11:56 → ED 02-09 15:23
DX: R44.0 Auditory hallucinations (principal)
CPT/HCPCS: 36415; 80048; 80307; 81001; 85007; 85025; 87591; 99284; G0480; 80320

== ENCOUNTER 2017-02-10 12:55 | Emergency (ER) | payer SELFPAY ==
[2017-02-10 13:47] VITALS: BP 101/72
--- NOTE | 2017-02-10 16:37 | Emergency Department Report ---
ED Male HPI - General Chief complaint: Urogenital-Male Stated complaint: GROIN PAIN Time Seen by Provider: 02/10/17 16:36 Source: patient Mode of arrival: Ambulatory Limitations: No Limitations - History of Present Illness MD Complaint: penile discharge, dysuria - Related Data Home Medications Medication Instructions Recorded Confirmed Last Taken Elviteg/Cathryn/Emtric/Tenofo Ala 1 each PO QDAY 01/11/17 01/11/17 Unknown [Genvoya (Nf)] Quetiapine Fumarate [SEROquel XR] 25 mg PO QDAY 01/11/17 01/11/17 Unknown Previous Rx's Medication Instructions Recorded Last Taken Type Ziprasidone [Geodon] 20 mg PO BID #60 capsule 01/15/17 Unknown Rx Nitrofurantoin [place]/M-Cryst 100 mg PO Q12HR #13 capsule 01/25/17 Unknown Rx [Macrobid CAP] Allergies Allergy/AdvReac Type Severity Reaction Status Date / Time No Known Allergies Allergy Verified 02/08/17 12:01 ED Review of Systems ROS: Stated complaint: GROIN PAIN Other details as noted in HPI ED Past Medical Hx - Past Medical History Hx Psychiatric Treatment: Yes (hallucinations) Hx HIV: Yes Additional medical history: syphillis - Surgical History Additional Surgical History: Breast augmentation - Social History Smoking Status: Never Smoker Substance Use Type: None - Medications Home Medications: Home Medications Medication Instructions Recorded Confirmed Last Taken Type Elviteg/Cathryn/Emtric/Tenofo Ala 1 each PO QDAY 01/11/17 01/11/17 Unknown History [Genvoya (Nf)] Quetiapine Fumarate [SEROquel XR] 25 mg PO QDAY 01/11/17 01/11/17 Unknown History Ziprasidone [Geodon] 20 mg PO BID #60 capsule 01/15/17 Unknown Rx Nitrofurantoin [place]/M-Cryst 100 mg PO Q12HR #13 capsule 01/25/17 Unknown Rx [Macrobid CAP] ED Physical Exam - General Limitations: No Limitations ED Course Vital Signs 02/10/17 13:44 Temperature 98.1 F Pulse Rate 79 Respiratory 16 Rate Blood Pressure 101/72 O2 Sat by Pulse 96 Oximetry Critical care attestation.: If time is entered above; I have spent that time in minutes in the direct care of this critically ill patient, excluding procedure time. ED Disposition Condition: Stable Referrals: PRIMARY CARE, [Primary Care Provider] - 3-5 Days
[2017-02-10] MEDS ORDERED: ZITHROMAX PO ONE (16:51)
[2017-02-10] MEDS ORDERED: XYLOCAINE 1% MPF 5 mL INFILTRATI ONE (16:51)
[2017-02-10] MEDS ORDERED: ROCEPHIN IM ONE (16:51)
[2017-02-10 16:53] LABS: Bilirubin,Urine NEG (Negative)
[2017-02-10 16:54] LABS: Blood,Urine NEG (Negative); Ketones,Urine TR mg/dL (Negative); Leukocyte Esterase,Urine TR (Negative); Mucus,Urine 3+ /HPF; Nitrite,Urine NEG (Negative)
--- NOTE | 2017-02-10 18:06 | Emergency Department Report ---
Entered by HERNAN TORRES, acting as scribe for MICHELE VALENZUELA PA. ED Male HPI - General Chief complaint: Urogenital-Male Stated complaint: GROIN PAIN Time Seen by Provider: 02/10/17 16:45 Source: patient Mode of arrival: Ambulatory Limitations: No Limitations - History of Present Illness Initial comments: 22 y/o male presents to the ED c/o penile pain x 4 days. Associated symptoms include discharge (clear) and dysuria, but denies testicular pain, rash, fever, chills, nausea and vomiting. Pain is described as 10/10 on a severity scale. Patient is sexually active and has more than one partner. No alleviating or aggravating factors. NKDA. PMHx of syphilis and HIV. PSHx of breast augmentation. MD Complaint: other (penile pain) Onset/Timin -: days(s) Location: penis Radiation: none Severity: severe Severity scale (0 -10): 10 Consistency: constant Improves with: none Worsens with: none discharge, dysuria. denies: nausea/vomiting, other (fever, chills, testicular pain ) - Related Data Sexually active: Yes Home Medications Medication Instructions Recorded Confirmed Last Taken Elviteg/Cathryn/Emtric/Tenofo Ala 1 each PO QDAY 01/11/17 01/11/17 Unknown [Genvoya (Nf)] Quetiapine Fumarate [SEROquel XR] 25 mg PO QDAY 01/11/17 01/11/17 Unknown Previous Rx's Medication Instructions Recorded Last Taken Type Ziprasidone [Geodon] 20 mg PO BID #60 capsule 01/15/17 Unknown Rx Nitrofurantoin [place]/M-Cryst 100 mg PO Q12HR #13 capsule 01/25/17 Unknown Rx [Macrobid CAP] Allergies Allergy/AdvReac Type Severity Reaction Status Date / Time No Known Allergies Allergy Verified 02/08/17 12:01 ED Review of Systems Comment: All other systems reviewed and negative Constitutional: denies: chills, fever Gastrointestinal: denies: nausea, vomiting Genitourinary: dysuria, discharge, other (penile pain). denies: testicular pain Skin: denies: rash ED Past Medical Hx - Past Medical History Hx Psychiatric Treatment: Yes (hallucinations) Hx HIV: Yes Additional medical history: syphillis - Surgical History Additional Surgical History: Breast augmentation - Social History Smoking Status: Never Smoker Substance Use Type: None - Medications Home Medications: Home Medications Medication Instructions Recorded Confirmed Last Taken Type Elviteg/Cathryn/Emtric/Tenofo Ala 1 each PO QDAY 01/11/17 01/11/17 Unknown History [Genvoya (Nf)] Quetiapine Fumarate [SEROquel XR] 25 mg PO QDAY 01/11/17 01/11/17 Unknown History Ziprasidone [Geodon] 20 mg PO BID #60 capsule 01/15/17 Unknown Rx Nitrofurantoin [place]/M-Cryst 100 mg PO Q12HR #13 capsule 01/25/17 Unknown Rx [Macrobid CAP] ED Physical Exam - General Limitations: No Limitations General appearance: alert, in no apparent distress - Head Head exam: Present: atraumatic, normocephalic, normal inspection - Eye Eye exam: Present: normal appearance, PERRL, EOMI. Absent: scleral icterus, conjunctival injection, nystagmus, periorbital swelling, periorbital tenderness Pupils: Present: normal accommodation - ENT ENT exam: Present: normal exam, normal orophraynx, mucous membranes moist, TM's normal bilaterally, normal external ear exam - Neck Neck exam: Present: normal inspection, full ROM. Absent: tenderness, meningismus, lymphadenopathy, thyromegaly - Respiratory Respiratory exam: Present: normal lung sounds bilaterally. Absent: respiratory distress, wheezes, rales, rhonchi, stridor, chest wall tenderness, accessory muscle use, decreased breath sounds, prolonged expiratory - Cardiovascular Cardiovascular Exam: Present: regular rate, normal rhythm, normal heart sounds. Absent: bradycardia, tachycardia, irregular rhythm, systolic murmur, diastolic murmur, rubs, gallop - GI/Abdominal GI/Abdominal exam: Present: soft, normal bowel sounds. Absent: tenderness, guarding, rebound - exam: Present: urethral discharge (clear-white discharge) - Extremities Exam Extremities exam: Present: normal inspection, full ROM, normal capillary refill. Absent: tenderness, pedal edema, joint swelling, calf tenderness - Back Exam Back exam: Present: normal inspection, full ROM. Absent: tenderness, CVA tenderness (R), CVA tenderness (L), muscle spasm, paraspinal tenderness, vertebral tenderness, rash noted - Neurological Exam Neurological exam: Present: alert, oriented X3 - Psychiatric Psychiatric exam: Present: normal affect, normal mood - Skin Skin exam: Present: warm, dry, intact, normal color. Absent: rash ED Course Vital Signs 02/10/17 13:44 Temperature 98.1 F Pulse Rate 79 Respiratory 16 Rate Blood Pressure 101/72 O2 Sat by Pulse 96 Oximetry ED Medical Decision Making - Medical Decision Making A/P: Urethritis, elaving against medical advice 1-I ordered empiric treatment with azithro and ceftriaxone. Pt willing to take azithromycin but unwilling to recive ceftriaxone infection, pt does not wish take this medicine. Patient is unwilling to elaborate why he does not wish to be treated further. I discussed this with the RN present. I advised patient that if he is not fully treated he will continue to have symptoms which may result in further infection sepsis and . Patient stated he understood these risks but did not want any further treatment in the ED at this time. Patient was awake alert and oriented 3 for this discussion was fully lucid and cooperative otherwise. SACHA Manzanares present for this discussion that I had with the patient. Patient signed out AGAINST MEDICAL ADVICE. 2-follow up with primary care ED Disposition Clinical Impression: Urethritis, Left against medical advice Disposition: DC-01 TO HOME OR SELFCARE Is pt being admited?: No Does the pt Need Aspirin: No Condition: Stable Instructions: Nonspecific Urethritis in Men (ED), Against Medical Advice (ED) Referrals: [facility] [Outside] - 3-5 Days [facility] [Outside] - 3-5 Days Forms: STI Treatment and Prevention, Work/School Release Form(ED), AMA Form Time of Disposition: 18:02 This documentation as recorded by the BRIAN bustillos ELIZABETH,accurately reflects the service I personally performed and the decisions made by me,MICHELE VALENZUELA PA.
== END 2017-02-10 18:12 | disposition home or self-care (01) ==
LOC: ED 12:55
DX: N34.2 Other urethritis (principal)
CPT/HCPCS: 81001; 87591; 96372; 99283; J0696

== ENCOUNTER 2017-02-16 07:46 | Emergency (ER) | payer SELFPAY ==
[2017-02-16 07:54] VITALS: BP 100/74
--- NOTE | 2017-02-16 09:20 | Emergency Department Report ---
ED General Adult HPI - General Chief complaint: Medical Clearance Stated complaint: Implant removal Source: patient Mode of arrival: Ambulatory Limitations: No Limitations - History of Present Illness Initial comments: 22 y/o M with a PMHX of syphillis and HIV presents wanting his implants removed as he states that they are infected. Pt reports to pain at the site that comes and goes and has worsened in the last few months. Pt has been taking advil for the pain. Pt states that he got the implants in last year in [place]. Pt denies any chest pain, fever, chills, or resp distress/ difficulty breathing at this time. He states that he feels like the implants are oozing, but has not noticed any external oozing. Pt states that he has seen his PCP for this issue and was referred to a specialist but has not gotten to see them yet. Tab Cutter was in the room during my examination of the patient. -: Gradual, month(s) (3) Location: chest (location of the breast area- implants) Severity scale (0 -10): 10 Quality: constant, other Consistency: intermittent Worsens with: medication Associated Symptoms: denies other symptoms Treatments Prior to Arrival: NSAID - Related Data Home Medications Medication Instructions Recorded Confirmed Last Taken Elviteg/Cathryn/Emtric/Tenofo Ala 1 each PO QDAY 01/11/17 01/11/17 Unknown [Genvoya (Nf)] Quetiapine Fumarate [SEROquel XR] 25 mg PO QDAY 01/11/17 01/11/17 Unknown Previous Rx's Medication Instructions Recorded Last Taken Type Ziprasidone [Geodon] 20 mg PO BID #60 capsule 01/15/17 Unknown Rx Nitrofurantoin [place]/M-Cryst 100 mg PO Q12HR #13 capsule 01/25/17 Unknown Rx [Macrobid CAP] Allergies Allergy/AdvReac Type Severity Reaction Status Date / Time No Known Allergies Allergy Verified 02/16/17 07:50 ED Review of Systems ROS: Stated complaint: Implant removal Other details as noted in HPI Constitutional: denies: chills, fever Eyes: denies: eye pain, eye discharge, vision change ENT: denies: ear pain, throat pain Respiratory: denies: cough (no respiratory distress or difficulty breathing), wheezing Cardiovascular: denies: chest pain, palpitations Endocrine: no symptoms reported Gastrointestinal: denies: abdominal pain, nausea, diarrhea Genitourinary: denies: urgency, dysuria Musculoskeletal: denies: back pain, joint swelling, arthralgia Skin: rash, lesions, other (reports to a feeling of oozing at the site of the impants) Neurological: denies: headache, weakness, paresthesias Psychiatric: denies: anxiety, depression Hematological/Lymphatic: denies: easy bleeding, easy bruising ED Past Medical Hx - Past Medical History Hx Psychiatric Treatment: Yes (hallucinations) Hx HIV: Yes Additional medical history: syphillis - Surgical History Additional Surgical History: Breast augmentation - Social History Smoking Status: Never Smoker Substance Use Type: None - Medications Home Medications: Home Medications Medication Instructions Recorded Confirmed Last Taken Type Elviteg/Cathryn/Emtric/Tenofo Ala 1 each PO QDAY 01/11/17 01/11/17 Unknown History [Genvoya (Nf)] Quetiapine Fumarate [SEROquel XR] 25 mg PO QDAY 01/11/17 01/11/17 Unknown History Ziprasidone [Geodon] 20 mg PO BID #60 capsule 01/15/17 Unknown Rx Nitrofurantoin [place]/M-Cryst 100 mg PO Q12HR #13 capsule 01/25/17 Unknown Rx [Macrobid CAP] ED Physical Exam - General Limitations: No Limitations General appearance: alert, in no apparent distress - Head Head exam: Present: atraumatic, normocephalic - Eye Eye exam: Present: normal appearance - ENT ENT exam: Present: mucous membranes moist - Neck Neck exam: Present: normal inspection - Respiratory Respiratory exam: Present: normal lung sounds bilaterally. Absent: respiratory distress - Cardiovascular Cardiovascular Exam: Present: regular rate, normal rhythm. Absent: systolic murmur, diastolic murmur, rubs, gallop - Skin Skin exam: Present: warm, dry, intact, normal color (at the site of bilateral impants there is a surgical scar noted inferior to the breast, no evidence of infection was noted at this time, no oozing, pus, or drianage, no redness, or swelling, mild pain at the site). Absent: rash ED Course Vital Signs 02/16/17 07:51 Temperature 98.6 F Pulse Rate 69 Respiratory 16 Rate Blood Pressure 100/74 O2 Sat by Pulse 100 Oximetry - Reevaluation(s) Reevaluation #1: 02/16/17 09:24 ED stay was uneventful ED Medical Decision Making - Medical Decision Making Pt requests to have his implants removed at the ED stating that he has been having pain at the surgical site and a feeling of internal oozing. I did not see any obvious signs of infection on examination today, I have informed the patient. Tylenol for pain at home and a referral has been provided to the patient for plastic surgery for removal of the implants. Educated that if any worsening symptoms then he may return to the ED immediately. Pt was alert and oriented, no signs of resp distress on discharge- vitals were stable. Currently only on Genoya for HIV. Critical care attestation.: If time is entered above; I have spent that time in minutes in the direct care of this critically ill patient, excluding procedure time. ED Disposition Clinical Impression: Hx of breast implants, bilateral Disposition: DC-01 TO HOME OR SELFCARE Is pt being admited?: No Does the pt Need Aspirin: No Condition: Stable Instructions: and Breast Implants (ED) Additional Instructions: Please take tylenol as needed for the pain. If your symptoms increase such as: fever, chills, oozing, pus drainage, chest pain or SOB. Please return to the ED immediately. Please follow up with plastic surgeon for possible removal of the implants. Follow-up with PCP in about 3-5 days. Referrals: [facility] [Outside] - 3-5 Days WORK,JOSE Diamond JR, MD [Staff Physician] - 3-5 Days PRIMARY CARE, [Primary Care Provider] - 3-5 Days Forms: Work/School Release Form(ED)
== END 2017-02-16 09:56 | disposition home or self-care (01) ==
LOC: ED 07:46
DX: T85.9XXA Unspecified complication of internal prosthetic device, implant and graft, initial encounter (principal); Y84.9 Medical procedure, unspecified as the cause of abnormal reaction of the patient, or of later complication, without mention of misadventure at the time of the procedure
CPT/HCPCS: 99282

== ENCOUNTER 2017-03-17 12:55 | Emergency (ER) | payer SELFPAY ==
[2017-03-17] MEDS ORDERED: MOTRIN PO ONE (16:42)
[2017-03-17 16:58] VITALS: BP 113/80
--- NOTE | 2017-03-17 17:03 | Emergency Department Report ---
ED General Adult HPI - General Chief complaint: Pain General Stated complaint: PAIN UNDER BREAST Time Seen by Provider: 03/17/17 16:18 Source: patient Mode of arrival: Ambulatory Limitations: No Limitations - History of Present Illness Initial comments: 22-year-old male with a history of left breast pain for several months. Patient having pain around his breast implants. He states he had implants placed one year ago. No fevers chills nausea vomiting. Denies SI or HI. -: Gradual Severity scale (0 -10): 0 Quality: aching, sharp Improves with: none Worsens with: none Associated Symptoms: denies: confusion, chest pain - Related Data Home Medications Medication Instructions Recorded Confirmed Last Taken Elviteg/Cathryn/Emtric/Tenofo Ala 1 each PO QDAY 01/11/17 01/11/17 Unknown [Genvoya (Nf)] Quetiapine Fumarate [SEROquel XR] 25 mg PO QDAY 01/11/17 01/11/17 Unknown Previous Rx's Medication Instructions Recorded Last Taken Type Ziprasidone [Geodon] 20 mg PO BID #60 capsule 01/15/17 Unknown Rx Nitrofurantoin [place]/M-Cryst 100 mg PO Q12HR #13 capsule 01/25/17 Unknown Rx [Macrobid CAP] Ibuprofen [Motrin 600 MG tab] 600 mg PO ONCE PRN #30 tablet 03/17/17 Unknown Rx Allergies Allergy/AdvReac Type Severity Reaction Status Date / Time No Known Allergies Allergy Verified 03/17/17 13:00 ED Review of Systems ROS: Stated complaint: PAIN UNDER BREAST Other details as noted in HPI Constitutional: denies: chills, fever ENT: denies: ear pain, throat pain, dental pain, hearing loss Respiratory: denies: cough, orthopnea, shortness of breath Cardiovascular: denies: chest pain, palpitations Gastrointestinal: denies: abdominal pain, nausea, vomiting Musculoskeletal: denies: back pain, joint swelling, arthralgia Skin: denies: rash ED Past Medical Hx - Past Medical History Previous Medical History?: Yes Hx Psychiatric Treatment: Yes (hallucinations) Hx HIV: Yes Additional medical history: syphillis - Surgical History Past Surgical History?: Yes Hx Breast Surgery: Yes Additional Surgical History: Breast augmentation - Social History Smoking Status: Never Smoker Substance Use Type: None - Medications Home Medications: Home Medications Medication Instructions Recorded Confirmed Last Taken Type Elviteg/Cathryn/Emtric/Tenofo Ala 1 each PO QDAY 01/11/17 01/11/17 Unknown History [Genvoya (Nf)] Quetiapine Fumarate [SEROquel XR] 25 mg PO QDAY 01/11/17 01/11/17 Unknown History Ziprasidone [Geodon] 20 mg PO BID #60 capsule 01/15/17 Unknown Rx Nitrofurantoin [place]/M-Cryst 100 mg PO Q12HR #13 capsule 01/25/17 Unknown Rx [Macrobid CAP] Ibuprofen [Motrin 600 MG tab] 600 mg PO ONCE PRN #30 tablet 03/17/17 Unknown Rx ED Physical Exam - General Limitations: No Limitations General appearance: alert, in no apparent distress, cachectic - Head Head exam: Present: atraumatic, normocephalic - Eye Eye exam: Present: normal appearance. Absent: scleral icterus, conjunctival injection - ENT ENT exam: Present: mucous membranes moist - Neck Neck exam: Absent: tenderness, lymphadenopathy, thyromegaly - Respiratory Respiratory exam: Present: normal lung sounds bilaterally. Absent: respiratory distress, wheezes - Cardiovascular Cardiovascular Exam: Present: regular rate, normal rhythm, other (slight tenderness around the left breast). Absent: systolic murmur, diastolic murmur, rubs, gallop - GI/Abdominal GI/Abdominal exam: Present: soft, normal bowel sounds. Absent: distended, guarding - Rectal Rectal exam: Present: deferred - Extremities Exam Extremities exam: Present: normal inspection - Back Exam Back exam: Present: normal inspection - Neurological Exam Neurological exam: Present: alert, oriented X3 - Psychiatric Psychiatric exam: Present: normal affect, normal mood - Skin Skin exam: Present: warm, dry, intact, normal color. Absent: rash ED Course Vital Signs 03/17/17 03/17/17 13:00 16:56 Temperature 98.2 F 98.9 F Pulse Rate 109 H 94 H Respiratory 20 Rate Blood Pressure 124/100 Blood Pressure 113/80 [Left] O2 Sat by Pulse 98 97 Oximetry ED Medical Decision Making - Lab Data Result diagrams: 03/17/17 16:48 03/17/17 16:48 - Medical Decision Making Patient with a history of left breast pain. Patient requesting transfer to have this breast implant removed. Told him this was not an emergent procedure that was needed. Plan check labs and and discharged with follow-up. I discussed the need to follow-up with her outpatient surgeon to have his breast implants rate. Portions of this chart were dictated with dictation software. There may be dictation errors contained within this note. Critical care attestation.: If time is entered above; I have spent that time in minutes in the direct care of this critically ill patient, excluding procedure time. ED Disposition Clinical Impression: Evaluation by medical service required Disposition: TO HOME OR SELFCARE Is pt being admited?: No Condition: Stable Prescriptions: Ibuprofen [Motrin 600 MG tab] 600 mg PO ONCE PRN #30 tablet PRN Reason: Pain Referrals: PRIMARY CARE, [Primary Care Provider] - 3-5 Days
[2017-03-17 17:19] LABS: Basophils % (Auto) 1.4 % (0.0-1.8); Eosinophils % (Auto) 6.4 % (0.0-4.3); Hematocrit 45.2 % (35.5-45.6); Hemoglobin 15.1 gm/dl (11.8-15.2); Mean Corpuscular HGB Conc 33 % (32-34); Mean Corpuscular Hemoglobin 30 pg (28-32); Mean Corpuscular Volume 88 fl (84-94); Platelet Count 148 K/mm3 (140-440); Red Blood Count 5.11 M/mm3 (3.65-5.03); White Blood Count 4.3 K/mm3 (4.5-11.0)
[2017-03-17 17:25] LABS: Anion Gap 19 mmol/L; BUN/Creatinine Ratio 16; Blood Urea Nitrogen 11 mg/dL (9-20); Carbon Dioxide 22 mmol/L (22-30); Chloride 102.1 mmol/L (98-107); Glucose 114 mg/dL (75-100); Potassium 3.9 mmol/L (3.6-5.0); Sodium 139 mmol/L (137-145)
== END 2017-03-17 18:38 | disposition home or self-care (01) ==
LOC: ED 12:55
DX: N64.4 Mastodynia (principal)
CPT/HCPCS: 36415; 80048; 85025; 99283

== ENCOUNTER 2017-05-19 02:26 | Emergency (ER) | payer OTHER ==
[2017-05-19] MEDS ORDERED: TORADOL IV ONE ×2 (03:27→03:54)
[2017-05-19] MEDS ORDERED: NACL 0.9% 1000 ML 1,000 ML IV ONE (03:54)
[2017-05-19 04:17] LABS: Basophils % (Auto) 0.8 % (0.0-1.8); Eosinophils % (Auto) 3.6 % (0.0-4.3); Hematocrit 42.6 % (35.5-45.6); Hemoglobin 14.3 gm/dl (11.8-15.2); Mean Corpuscular HGB Conc 34 % (32-34); Mean Corpuscular Hemoglobin 30 pg (28-32); Mean Corpuscular Volume 90 fl (84-94); Platelet Count 145 K/mm3 (140-440); Red Blood Count 4.76 M/mm3 (3.65-5.03); Red Cell Distribution Width 14.4 % (13.2-15.2); White Blood Count 4.2 K/mm3 (4.5-11.0)
[2017-05-19 04:22] LABS: Anion Gap 18 mmol/L; BUN/Creatinine Ratio 20; Blood Urea Nitrogen 14 mg/dL (9-20); Carbon Dioxide 27 mmol/L (22-30); Chloride 102.3 mmol/L (98-107); Glucose 88 mg/dL (75-100); Sodium 143 mmol/L (137-145)
--- NOTE | 2017-05-19 04:41 | XRay Report ---
FINAL REPORT PROCEDURE: XR CHEST ROUTINE 2V TECHNIQUE: PA and lateral chest radiographs were obtained. CPT 23833 HISTORY: Shortness of breath COMPARISON: No prior studies are available for comparison. FINDINGS: Heart: Normal. Mediastinum/Vessels: Normal. Lungs/Pleural space: Normal. Bony thorax: No acute osseous abnormality. Other: IMPRESSION: Normal examination.
--- NOTE | 2017-05-19 05:28 | Cat Scan Report ---
FINAL REPORT PROCEDURE: CT ANGIO CHEST TECHNIQUE: Computerized axial tomographic angiography of the chest and pulmonary arteries was performed after the IV injection of iodinated nonionic contrast. The image data was postprocessed using maximum intensity projection (MIP) and 2-dimensional multiplanar reformatted (MPR) techniques. The examination is specifically tailored to the evaluation of the pulmonary arteries per clinical request. HISTORY: Short of breath 786.09, chest pain 786.50, SOB,BREAST IMPLANTS IN MALE HIV,?PE COMPARISON: No prior studies are available for comparison. FINDINGS: Heart and pericardium: Normal. Thoracic aorta: Normal. Pulmonary vasculature: Normal. No pulmonary emboli. Lymph nodes: No enlarged thoracic lymph nodes. Lungs: Normal. Pleural space: No effusion, thickening, or pneumothorax. Musculoskeletal structures: No significant abnormality. Upper abdominal structures: No significant abnormality. IMPRESSION: Normal Examination.
[2017-05-19 07:08] LABS: Creatine Kinase MB 2.4 ng/mL (0.0-4.0)
[2017-05-19 07:10] LABS: Creatine Kinase 197 units/L (55-170)
--- NOTE | 2017-05-19 07:55 | Emergency Department Report ---
ED Chest Pain HPI - General Chief Complaint: Dyspnea/Respdistress Stated Complaint: MANJU Time Seen by Provider: 05/19/17 03:25 Source: patient, EMS Mode of arrival: Ambulatory Limitations: No Limitations - History of Present Illness Initial Comments: 22 YO MALE WITH BREAST IMPLANTS FOR ONE YEAR IS HERE WITH C/O CHEST PAIN AND DIFFICULTY BREATHING, CHEST TIGHTNESS , BODY ACHES AND COLDNESS TO FINGER AND TOES. DENIES COUGH, OR COLD SYMPTOMS. HE HAD BEEN HAVING TROUBLE WITH HIS IMPLANTS SINCE THEY HE PLACED LAST YEAR. HE PLANS TO HAVE THEM REMOVED AND TO DO HORMONE THERAPY. HE IS HIV POSITIVE AND HAS BEEN OFF MEDICATION FOR 6 MONTHS OR MORE MD Complaint: chest pain -: days(s) (FEW) Onset: during rest Pain Location: substernal, left chest, right chest Pain Radiation: none Severity: moderate Severity scale (0 -10): 4 Quality: tightness, aching Consistency: constant Improves With: nothing Worsens With: palpation re: dyspnea. denies: nausea, vomting Other Symptoms: denies: cough, fever, syncope Treatments Prior to Arrival: none - Related Data Home Medications Medication Instructions Recorded Confirmed Last Taken Elviteg/Cathryn/Emtric/Tenofo Ala 1 each PO QDAY 01/11/17 01/11/17 Unknown [Genvoya (Nf)] Quetiapine Fumarate [SEROquel XR] 25 mg PO QDAY 01/11/17 01/11/17 Unknown Previous Rx's Medication Instructions Recorded Last Taken Type Ziprasidone [Geodon] 20 mg PO BID #60 capsule 01/15/17 Unknown Rx Nitrofurantoin [place]/M-Cryst 100 mg PO Q12HR #13 capsule 01/25/17 Unknown Rx [Macrobid CAP] Ibuprofen [Motrin 600 MG tab] 600 mg PO ONCE PRN #30 tablet 05/19/17 Unknown Rx Allergies Allergy/AdvReac Type Severity Reaction Status Date / Time No Known Allergies Allergy Verified 03/17/17 13:00 Heart Score - HEART Score History: Slightly suspicious EKG: Normal Age: < 45 Risk factors: No known risk factors Troponin: < normal limit HEART Score: 0 ED Review of Systems ROS: Stated complaint: MANJU Other details as noted in HPI Constitutional: denies: chills, fever Eyes: denies: eye pain, eye discharge, vision change ENT: denies: ear pain, throat pain Respiratory: shortness of breath. denies: cough, wheezing Cardiovascular: chest pain. denies: palpitations Endocrine: no symptoms reported Gastrointestinal: denies: abdominal pain, nausea, diarrhea Genitourinary: denies: urgency, dysuria Musculoskeletal: denies: back pain, joint swelling, arthralgia Skin: denies: rash, lesions Neurological: denies: headache, weakness, paresthesias Psychiatric: denies: anxiety, depression Hematological/Lymphatic: denies: easy bleeding, easy bruising ED Past Medical Hx - Past Medical History Previous Medical History?: Yes Hx Psychiatric Treatment: Yes (hallucinations) Hx HIV: Yes Additional medical history: syphillis - Surgical History Past Surgical History?: Yes Hx Breast Surgery: Yes Additional Surgical History: Breast augmentation 2015 - Family History Family history: hypertension - Social History Smoking Status: Never Smoker Substance Use Type: None - Medications Home Medications: Home Medications Medication Instructions Recorded Confirmed Last Taken Type Elviteg/Cathryn/Emtric/Tenofo Ala 1 each PO QDAY 01/11/17 01/11/17 Unknown History [Genvoya (Nf)] Quetiapine Fumarate [SEROquel XR] 25 mg PO QDAY 01/11/17 01/11/17 Unknown History Ziprasidone [Geodon] 20 mg PO BID #60 capsule 01/15/17 Unknown Rx Nitrofurantoin [place]/M-Cryst 100 mg PO Q12HR #13 capsule 01/25/17 Unknown Rx [Macrobid CAP] Ibuprofen [Motrin 600 MG tab] 600 mg PO ONCE PRN #30 tablet 05/19/17 Unknown Rx ED Physical Exam - General Limitations: No Limitations General appearance: alert, in no apparent distress - Head Head exam: Present: atraumatic, normocephalic - Eye Eye exam: Present: normal appearance, EOMI - ENT ENT exam: Present: mucous membranes moist - Neck Neck exam: Present: normal inspection, full ROM - Respiratory Respiratory exam: Present: normal lung sounds bilaterally, other (LArge breast implants). Absent: respiratory distress - Cardiovascular Cardiovascular Exam: Present: regular rate, normal rhythm. Absent: systolic murmur, diastolic murmur, rubs, gallop - GI/Abdominal GI/Abdominal exam: Present: soft, normal bowel sounds. Absent: distended, tenderness - Rectal Rectal exam: Present: deferred - Extremities Exam Extremities exam: Present: normal inspection - Back Exam Back exam: Present: normal inspection - Neurological Exam Neurological exam: Present: alert, oriented X3 - Psychiatric Psychiatric exam: Present: normal affect, normal mood - Skin Skin exam: Present: warm, dry, intact, normal color. Absent: rash ED Course Vital Signs 05/19/17 05/19/17 05/19/17 02:37 03:34 04:00 Temperature 98.1 F 97.9 F Pulse Rate 74 70 64 Respiratory 18 16 15 Rate Blood Pressure 93/59 96/60 Blood Pressure 101/61 [Left] O2 Sat by Pulse 98 100 100 Oximetry 05/19/17 05/19/17 06:00 07:00 Temperature Pulse Rate 65 69 Respiratory 14 14 Rate Blood Pressure 104/51 96/47 Blood Pressure [Left] O2 Sat by Pulse 99 99 Oximetry HARJEET score - Harjeet Score Age > 65: (0) No Aspirin use within the Past 7 Days: (0) No 3 or more CAD Risk Factors: (0) No 2 or more Angina events in past 24 hrs: (0) No Known CAD with more than 50% Stenosis: (0) No Elevated Cardiac Markers: (0) No ST Deviation Greater than 0.5mm: (0) No HARJEET Score: 0 ED Medical Decision Making - Lab Data Result diagrams: 05/19/17 03:44 05/19/17 03:44 - Radiology Data Radiology results: report reviewed (CT abd: negative) Critical care attestation.: If time is entered above; I have spent that time in minutes in the direct care of this critically ill patient, excluding procedure time. ED Disposition Clinical Impression: Chest wall pain Disposition: - TO HOME OR SELFCARE Is pt being admited?: No Does the pt Need Aspirin: No Condition: Stable Instructions: Chest Pain (ED) Prescriptions: Ibuprofen [Motrin 600 MG tab] 600 mg PO ONCE PRN #30 tablet PRN Reason: Pain Referrals: PRIMARY CARE,MD [Primary Care Provider] - 3-5 Days Time of Disposition: 08:00
[2017-05-19 09:54] VITALS: BP 106/63
== END 2017-05-19 09:58 | disposition home or self-care (01) ==
LOC: ED 02:26
DX: R07.89 Other chest pain (principal); R06.00 Dyspnea, unspecified
CPT/HCPCS: 36415; 71020; 71275; 80048; 82550; 82553; 83880; 84484; 85025; 87400; 93005; 93010; 96361; 96374; 99285; J1885; J7030; Q9967

== ENCOUNTER 2020-09-12 02:09 | Emergency (ER) | payer SELFPAY ==
[2020-09-12 03:01] VITALS: BP 105/65
--- NOTE | 2020-09-12 03:20 | Emergency Department Report ---
ED General Adult HPI - General Chief complaint: Upper Respiratory Infection Stated complaint: NASAL CONGESTION Time Seen by Provider: 09/12/20 03:10 Source: patient Mode of arrival: Stretcher Limitations: No Limitations - History of Present Illness Initial comments: Patient is a 25-year-old male presents emergency room with complaints of nasal congestion and rhinorrhea that began today. Patient denies any fever, nausea, vomiting, diarrhea, shortness of breath, cough, chest pain, abdominal pain. Past medical history of HIV on his antivirals. No allergies to medications. No known sick contacts or recent travel. - Related Data Home Medications Medication Instructions Recorded Confirmed Last Taken Elviteg/Cathryn/Emtric/Tenofo Ala 1 each PO QDAY 01/11/17 01/11/17 Unknown [Genvoya (Nf)] Quetiapine Fumarate [SEROquel XR] 25 mg PO QDAY 01/11/17 01/11/17 Unknown Previous Rx's Medication Instructions Recorded Last Taken Type Ziprasidone [Geodon] 20 mg PO BID #60 capsule 01/15/17 Unknown Rx Nitrofurantoin [place]/M-Cryst 100 mg PO Q12HR #13 capsule 01/25/17 Unknown Rx [Macrobid CAP] Ibuprofen [Motrin 600 MG tab] 600 mg PO ONCE PRN #30 tablet 05/19/17 Unknown Rx Fluticasone [Flonase] 1 spray NS QDAY #1 bottle 09/12/20 Unknown Rx Loratadine 10 mg PO DAILY #30 tablet 09/12/20 Unknown Rx Allergies Allergy/AdvReac Type Severity Reaction Status Date / Time No Known Allergies Allergy Verified 03/17/17 13:00 ED Review of Systems ROS: Stated complaint: NASAL CONGESTION Other details as noted in HPI Comment: All other systems reviewed and negative ED Past Medical Hx - Past Medical History Previous Medical History?: Yes Hx Psychiatric Treatment: Yes (hallucinations) Hx HIV: Yes Additional medical history: syphillis, ECZEMA - Surgical History Past Surgical History?: Yes Hx Breast Surgery: Yes Additional Surgical History: Breast augmentation 2015 - Social History Smoking Status: Never Smoker Substance Use Type: None - Medications Home Medications: Home Medications Medication Instructions Recorded Confirmed Last Taken Type Elviteg/Cathryn/Emtric/Tenofo Ala 1 each PO QDAY 01/11/17 01/11/17 Unknown History [Genvoya (Nf)] Quetiapine Fumarate [SEROquel XR] 25 mg PO QDAY 01/11/17 01/11/17 Unknown History Ziprasidone [Geodon] 20 mg PO BID #60 capsule 01/15/17 Unknown Rx Nitrofurantoin [place]/M-Cryst 100 mg PO Q12HR #13 capsule 01/25/17 Unknown Rx [Macrobid CAP] Ibuprofen [Motrin 600 MG tab] 600 mg PO ONCE PRN #30 tablet 05/19/17 Unknown Rx Fluticasone [Flonase] 1 spray NS QDAY #1 bottle 09/12/20 Unknown Rx Loratadine 10 mg PO DAILY #30 tablet 09/12/20 Unknown Rx ED Physical Exam - General Limitations: No Limitations General appearance: alert, in no apparent distress - Head Head exam: Present: atraumatic, normocephalic - Eye Eye exam: Present: normal appearance. Absent: conjunctival injection, p eriorbital swelling, periorbital tenderness - ENT ENT exam: Present: normal orophraynx, mucous membranes moist, TM's normal bilaterally, normal external ear exam, other (pale boggy edematous turbinates with clear nasal drainage bilaterally, no purulent drainage, no erythema, no sinus ttp) - Respiratory Respiratory exam: Present: normal lung sounds bilaterally. Absent: respiratory distress, wheezes, rales, rhonchi, stridor, chest wall tenderness, accessory muscle use, decreased breath sounds, prolonged expiratory - Cardiovascular Cardiovascular Exam: Present: regular rate, normal rhythm, normal heart sounds. Absent: systolic murmur, diastolic murmur, rubs, gallop - Neurological Exam Neurological exam: Present: alert, oriented X3 - Psychiatric Psychiatric exam: Present: normal affect, normal mood - Skin Skin exam: Present: warm, dry, intact ED Course Vital Signs 09/12/20 02:57 Temperature 98.2 F Pulse Rate 89 Respiratory 18 Rate Blood Pressure 105/65 O2 Sat by Pulse 99 Oximetry ED Medical Decision Making - Medical Decision Making Patient is a 25-year-old male presents emergency room with complaints of nasal congestion and rhinorrhea that began today. Patient denies any fever, nausea, vomiting, diarrhea, shortness of breath, cough, chest pain, abdominal pain. Past medical history of HIV on his antivirals. No allergies to medications. No known sick contacts or recent travel. Vitals are normal. On exam:pale boggy edematous turbinates with clear nasal drainage bilaterally, no purulent drainage, no erythema, no sinus ttp, normal TMs and canals bilaterally, normal oropharynx, breath sounds are clear bilaterally, no wheezing, no rales, no rhonchi. Examination appears consistent with allergic rhinitis. Patient has no clinical signs of bacterial pneumonia or bacterial bronchitis. Patient given prescription for loratadine and Flonase. Advised patient Please take medication as prescribed. Increase your water intake. Follow-up with a primary care doctor for reexamination. Return to emergency room for any worsening symptoms. Critical care attestation.: If time is entered above; I have spent that time in minutes in the direct care of this critically ill patient, excluding procedure time. ED Disposition Clinical Impression: Nasal congestion, Rhinorrhea Allergic rhinitis Qualifiers: Allergic rhinitis trigger: unspecified Allergic rhinitis seasonality: unspecified Qualified Code(s): J30.9 - Allergic rhinitis, unspecified Disposition: DC-01 TO HOME OR SELFCARE Is pt being admited?: No Does the pt Need Aspirin: No Condition: Stable Instructions: Allergic Rhinitis, Adult, [id number] Additional Instructions: Please take medication as prescribed. Increase your water intake. Follow-up with a primary care doctor for reexamination. Return to emergency room for any worsening symptoms. Prescriptions: Fluticasone [Flonase] 1 spray NS QDAY #1 bottle Loratadine 10 mg PO DAILY #30 tablet Referrals: RAIN EID MD [Staff Physician] - 2-3 Days [facility] [Provider Group] - 2-3 Days Time of Disposition: 03:18 Print Language: HEBREW
== END 2020-09-12 03:26 | disposition home or self-care (01) ==
LOC: ED 02:09
DX: J30.9 Allergic rhinitis, unspecified (principal); R09.81 Nasal congestion; J34.89 Other specified disorders of nose and nasal sinuses; Z79.899 Other long term (current) drug therapy; Z21 Asymptomatic human immunodeficiency virus [HIV] infection status; Z98.890 Other specified postprocedural states
CPT/HCPCS: 99283

== ENCOUNTER 2021-04-24 02:52 | Emergency (ER) | payer SELFPAY ==
[2021-04-24] MEDS ORDERED: FAMOTIDINE 20 MG TAB PO ONE (07:22)
[2021-04-24] MEDS ORDERED: ALUM-MAG HYDROXIDE-SIMETHICONE 200-200-20MG/5ML ORAL LIQD 30 ML PO ONE (07:22)
[2021-04-24] MEDS ORDERED: ONDANSETRON 4 MG ODT TAB PO ONE (07:24)
--- NOTE | 2021-04-24 07:26 | Emergency Department Report ---
ED Abdominal Pain HPI - General Chief Complaint: Nausea/Vomiting/Diarrhea Time Seen by Provider: 04/24/21 07:15 Source: EMS Mode of arrival: Stretcher Limitations: No Limitations - History of Present Illness Initial Comments: 26-year male with a past medical history of HIV, psychosis, previous syphilis, and breast implants presents to the hospital complaints of abdominal pain for several hours. Pain is upper abdomen, mild to moderate, feels tight, no aggravating or alleviating factors reported. Patient complains of nausea without fever or diarrhea. Triage complaint also mentions itching in both legs which patient states has resolved since coming to the ED. Patient is disheveled and appears to be homeless. He denies previous abdominal surgeries. He is intermittently compliant with antiretrovirals. No urinary symptoms reported - Related Data Home Medications Medication Instructions Recorded Confirmed Last Taken Elviteg/Cathryn/Emtric/Tenofo Ala 1 each PO QDAY 01/11/17 01/11/17 Unknown [Genvoya (Nf)] Quetiapine Fumarate [SEROquel XR] 25 mg PO QDAY 01/11/17 01/11/17 Unknown Previous Rx's Medication Instructions Recorded Last Taken Type Ziprasidone [Geodon] 20 mg PO BID #60 capsule 01/15/17 Unknown Rx Nitrofurantoin [place]/M-Cryst 100 mg PO Q12HR #13 capsule 01/25/17 Unknown Rx [Macrobid CAP] Ibuprofen [Motrin 600 MG tab] 600 mg PO ONCE PRN #30 tablet 05/19/17 Unknown Rx Fluticasone [Flonase] 1 spray NS QDAY #1 bottle 09/12/20 Unknown Rx Loratadine 10 mg PO DAILY #30 tablet 09/12/20 Unknown Rx Docusate Sodium [Colace] 100 mg PO BID #20 capsule 04/24/21 Unknown Rx Polyethylene Glycol 3350 [Miralax] 17 gm PO DAILY PRN #10 dose 04/24/21 Unknown Rx Allergies Allergy/AdvReac Type Severity Reaction Status Date / Time No Known Allergies Allergy Verified 03/17/17 13:00 ED Review of Systems ROS: Stated complaint: Other details as noted in HPI Comment: All other systems reviewed and negative ED Past Medical Hx - Past Medical History Hx Psychiatric Treatment: Yes (hallucinations) Hx HIV: Yes Additional medical history: syphillis, ECZEMA - Surgical History Hx Breast Surgery: Yes Additional Surgical History: Breast augmentation 2015 - Social History Smoking Status: Unknown if ever smoked Substance Use Type: None - Medications Home Medications: Home Medications Medication Instructions Recorded Confirmed Last Taken Type Elviteg/Cathryn/Emtric/Tenofo Ala 1 each PO QDAY 01/11/17 01/11/17 Unknown History [Genvoya (Nf)] Quetiapine Fumarate [SEROquel XR] 25 mg PO QDAY 01/11/17 01/11/17 Unknown History Ziprasidone [Geodon] 20 mg PO BID #60 capsule 01/15/17 Unknown Rx Nitrofurantoin [place]/M-Cryst 100 mg PO Q12HR #13 capsule 01/25/17 Unknown Rx [Macrobid CAP] Ibuprofen [Motrin 600 MG tab] 600 mg PO ONCE PRN #30 tablet 05/19/17 Unknown Rx Fluticasone [Flonase] 1 spray NS QDAY #1 bottle 09/12/20 Unknown Rx Loratadine 10 mg PO DAILY #30 tablet 09/12/20 Unknown Rx Docusate Sodium [Colace] 100 mg PO BID #20 capsule 04/24/21 Unknown Rx Polyethylene Glycol 3350 [Miralax] 17 gm PO DAILY PRN #10 dose 04/24/21 Unknown Rx ED Physical Exam - General Limitations: No Limitations - Other Other exam information: General: No acute distress Head: Atraumatic Eyes: normal appearance ENT: Moist mucous membranes Neck: Normal appearance, no midline tenderness Chest: Clear to auscultation bilaterally CV: Regular rate and rhythm Abdomen: Soft, normal bowel sounds, mild mid and upper abdomen tenderness to palpation, nondistended, no rebound or guarding Back: Normal inspection Extremity: Normal inspection, full range of motion Neuro: Alert O x 3, no facial asymmetry, speech clear, no gross motor sensory deficit Psych: Appropriate behavior Skin: Generalized excoriated rash ED Course Vital Signs 04/24/21 03:07 Temperature 97.1 F L Pulse Rate 72 Respiratory 16 Rate Blood Pressure 124/70 [Left] O2 Sat by Pulse 99 Oximetry ED Medical Decision Making - Lab Data Result diagrams: 04/24/21 07:32 04/24/21 07:32 Lab Results 04/24/21 04/24/21 Range/Units 07:32 07:32 WBC 5.3 (4.5-11.0) K/mm3 RBC 4.64 (3.65-5.03) M/mm3 Hgb 13.4 (11.8-15.2) gm/dl Hct 39.8 (35.5-45.6) % MCV 86 (84-94) fl MCH 29 (28-32) pg MCHC 34 (32-34) % RDW 14.9 (13.2-15.2) % Plt Count 186 (140-440) K/mm3 Eos % (Auto) Handle Sander Operator Sodium 137 (137-145) mmol/L Potassium 3.6 (3.6-5.0) mmol/L Chloride 101.8 (98-107) mmol/L Carbon Dioxide 24 (22-30) mmol/L Anion Gap 15 mmol/L BUN 9 (9-20) mg/dL Creatinine 0.7 L (0.8-1.3) mg/dL Estimated GFR > 60 ml/min BUN/Creatinine Ratio 13 % Glucose 129 H (75-100) mg/dL Calcium 8.6 (8.4-10.2) mg/dL Total Bilirubin 0.20 (0.1-1.2) mg/dL AST 25 (5-40) units/L ALT 18 (7-56) units/L Alkaline Phosphatase 94 (35-129) units/L Total Protein 9.5 H (6.3-8.2) g/dL Albumin 3.8 L (3.9-5) g/dL Albumin/Globulin Ratio 0.7 % Lipase 23 (13-60) units/L - Radiology Data Radiology results: report reviewed ABDOMEN 2 VIEWS INDICATION / CLINICAL INFORMATION: abd pain. COMPARISON: None available. FINDINGS: TUBES / LINES: None. BOWEL GAS PATTERN: Bowel gas pattern is nonobstructive. Large colonic stool burden in the descending and sigmoid colon. FREE AIR / EXTRALUMINAL GAS: None seen. ADDITIONAL FINDINGS: None IMPRESSION: Large colonic stool burden, compatible with constipation. No acute abnormality. - Medical Decision Making 26-year-old male presents to the hospital abdominal pain and tightness. Abdomen mildly tender on examination. X-ray confirms significant colonic stool burde n/constipation. Labs without acute abnormality. Patient will be discharged on stool softeners Critical Care Time: No Critical care attestation.: If time is entered above; I have spent that time in minutes in the direct care of this critically ill patient, excluding procedure time. ED Disposition Clinical Impression: Constipation Disposition: HOME / SELF CARE / HOMELESS Is pt being admited?: No Does the pt Need Aspirin: No Condition: Stable Instructions: Constipation, Adult, [id number] Additional Instructions: Take the medication as prescribed. Follow-up with your doctor or doctor/clinic provided. Return if symptoms worsen as indicated by your discharge instructions. Prescriptions: Docusate Sodium [Colace] 100 mg PO BID #20 capsule Polyethylene Glycol 3350 [Miralax] 17 gm PO DAILY PRN #10 dose PRN Reason: Constipation Referrals: PRIMARY CARE, [Primary Care Provider] - 3-5 Days [facility] [Provider Group] - 3-5 Days Time of Disposition: 09:31
[2021-04-24 07:49] LABS: Hematocrit 39.8 % (35.5-45.6); Hemoglobin 13.4 gm/dl (11.8-15.2); Mean Corpuscular HGB Conc 34 % (32-34); Mean Corpuscular Volume 86 fl (84-94); Platelet Count 186 K/mm3 (140-440); Red Blood Count 4.64 M/mm3 (3.65-5.03); Red Cell Distribution Width 14.9 % (13.2-15.2)
--- NOTE | 2021-04-24 08:11 | XRay Report ---
ABDOMEN 2 VIEWS INDICATION / CLINICAL INFORMATION: abd pain. COMPARISON: None available. FINDINGS: TUBES / LINES: None. BOWEL GAS PATTERN: Bowel gas pattern is nonobstructive. Large colonic stool burden in the descending and sigmoid colon. FREE AIR / EXTRALUMINAL GAS: None seen. ADDITIONAL FINDINGS: None IMPRESSION: Large colonic stool burden, compatible with constipation. No acute abnormality. Signer Name: Rubén Haley MD Signed: 04/24/2021 8:07 AM Workstation Name: [id number]
[2021-04-24 08:13] LABS: Alanine Aminotransferase 18 units/L (7-56); Albumin 3.8 g/dL (3.9-5); Blood Urea Nitrogen 9 mg/dL (9-20); Calcium 8.6 mg/dL (8.4-10.2); Hemolysis Index 22
[2021-04-24 08:14] LABS: BUN/Creatinine Ratio 13
[2021-04-24 09:42] VITALS: BP 122/66
[2021-04-24 14:01] LABS: Platelet Estimate Consistent w Auto; RBC Morphology Normal; Total Cells Counted 100
== END 2021-04-24 09:43 | disposition home or self-care (01) ==
LOC: ED 02:52
DX: K59.00 Constipation, unspecified (principal)
CPT/HCPCS: 36415; 74018; 80053; 83690; 85007; 85025; 99284; J3490; Q0162